=== PATIENT | male | born 1945 | race Caucasian/White ===

== ENCOUNTER 2020-03-03 13:31 | Inpatient (IN) ==
[2020-03-03] MEDS ORDERED: NS 1000 ML 1,000 ML IV ONE ×2 (13:52→18:14)
--- NOTE | 2020-03-03 14:22 | DR.WEAKNES ---
HPI Time Seen Time Seen by Provider: 03/03/20 13:55 Primary Care Physician Primary Care Physician: DIANA ROSE HPI Comment HPI Comment: PATIENT IS 75YR OLD MALE IN ER WITH GRNERALIZED WEAKNESS, ANOREXIA TIMES 3 DAYS. WORSE TODAY. SLURRED SPEECH, SLEEPY A LOT AND NOT EATING. THERAPIST CONCERN IF PATIENT HAVING STROKE. SHE IS NOT WANTING TO WALK. DENIES FEVER. DIARRHEA OR VOMITING. NO DYSURIA. Complaints Chief Complaint Doctors Comments: WEAKNESS ANOREXIA, SLURRED SPEECH THAT IS WORSE TODAY. Chief Complaint:: SLEEPING ALL DAY, NOT EATING, SLURRED SPEECH THAT HAS GOT WO RSE. HE CANT WALK. PROGRESSIVELY GETTING WORSE DESPITE HAVING THERAPY IN THE HOME. THERAPIST CONCERNED HE MAY HAVE HAD ANOTHER STROKE Reviewed Nurses Notes Reviewed: Yes Source History Provided: Patient and Family Member Mode of Arrival Mode of Arrival: Wheelchair Timing Onset of Chief Complaint: 02/29/20 Since onset, symptoms are:: Worsened Symptom Onset: Known Onset of Symptoms Start Date: 02/29/20 Duration Duration: Intermittent Duration: Days Context Onset: Spontaneous Symptoms: Weakness and Slurred Speech History of: None Stroke Symptoms: Dizziness Location Weakness Location: Generalized Associated Signs and Symptoms Associated Signs and Symptoms: Altered Mental Status PMH PMH Past Medical History: Yes Past Medical History: Coronary Artery Disease, CVA, Hypertension and [place] Past Medical History Comment: ANEURYSM, Past Surgical History: Yes Surgical History: Cholecystectomy Past Surgical History Comment: BACK AND NECK PAIN Family History History of Family Medical Conditions: Yes Family Medical History: Cancer Social History Type of Tobacco Use: Cigarettes Alcohol Use: None Do you use any recreational Drugs:: No Lives With: Family Lives Where: Home Travel Risk Coronavirus risk:travel/contact w/high risk person: No Has patient experienced Coronavirus symptoms: Yes Coronavirus symptoms experienced: Shortness of Breath Infectious screening In the last 2 months have you had wt loss of >10#?: NO Have you had fever, night sweats or hemotysis?: No Have you traveled outside the country in the last 6 months?: No Isolation: Droplet ROS Review of Systems Constitutional: See HPI, Weakness and Fatigue; negative Fever Eyes: No Symptoms Reported and See HPI ENTM: No Symptoms Reported and See HPI; negative Nose Discharge and Nose Congestion Respiratoy: See HPI, Moist Cough and Short of Breath; negative Wheezing Cardiovascular: No Symptoms Reported and See HPI; negative Chest Pain and Palpitations Gastrointestinal/Abdominal: No Symptoms Reported and See HPI; negative Abdominal Pain, Diarrhea and Vomiting Genitourinary: No Symptoms Reported and See HPI; negative Dysuria and Hematuria Neurological: See HPI, Weakness and Speech Problem (SLURRED SPEECH.); negative Headache Musculoskeletal: See HPI, Back Pain and Muscle Pain Integumentary: No Symptoms Reported and See HPI; negative Change in Color, Rash and Juandice Hematologic/Lymphatic: No Symptoms Reported and See HPI; negative Easy Bruising and Swollen Glands Endocrine: Decreased Appetite; negative Increased Thirst and Increased Urine Psychiatric: No Symptoms Reported and See HPI All Other Systems: Reviewed and Negative PE Vital Signs Vitals: Temperature 97.9 F Pulse Rate [Right Radial] 100 Pulse Rate 97 Respiratory Rate 20 Blood Pressure [Right Arm] 97/62 Blood Pressure 94/69 O2 Sat by Pulse Oximetry 100 General Limitations: No Limitations General Appearance: Alert and In No Apparent Distress Head Head Exam: Normal Inspection and Atraumatic Eyes Eye exam: Normal Appearance and PERRL; negative Scleral Icterus and Conjunctival Injection Eyelids: Normal Inspection: Bilateral Pupils: Regular, Round: Bilateral Sclera/Conjunctival: Normal Inspection: Bilateral ENT ENT Exam: Normal Exam, Normal Oropharynx, Normal External Ear Exam and TM's Normal Bilaterally Mouth Exam: Normal Inspection; negative Lip Swelling and Tongue Swelling Throat Exam: Tonsillar Erythema; negative Tonsillomegaly and Tonsillar Exudate Neck Neck Exam: Normal Inspection and Trachea Midline; negative Tenderness and Lymphadenopathy Chest Chest Inspection: Normal Inspection and Symmetric Chest Wall Rise; negative Tenderness Respiratory Respiratory Exam: Normal Lung Sounds Bilat; negative Accessory Muscle Use, Chest Wall Tenderness and Respiratory Distress Respiratory Exam: Bilateral: Rhonchi and Lower: Rhonchi Cardiovascular Cardiovascular Exam: Regular Rate, Normal Rhythm and Normal Heart Sounds; negative Systolic Murmur and Diastolic Murmur Abdominal Exam Abdominal Exam: Normal Inspection, Normal Bowel Sounds and Soft; negative Tenderness Extremities Extremities Exam: Normal Inspection and Normal Capillary Refill; negative Tenderness and Calf Tenderness Back Back Exam: Normal Inspection; negative (R) CVA Tenderness and (L) CVA Tenderness Neurologic Neurological Exam: Alert, Oriented X3 and CN II-XII Intact; negative Motor Sensory Deficit Patient Oriented To: Person, Place and Time Speech: Fluid Speech Cranial Nerve Exam: EOM Function (II, III, IV, ): Normal, Facial Sensation (V): Normal, Facial Palsy (VII): Normal, Gag reflex (XI): Normal and Tongue Deviation: Normal Cerebellar Function: Normal Gait Motor Strength - LUE: 5/5 Motor Strength - RUE: 5/5 Motor Strength - LLE: 5/5 Motor Strength - RLE: 5/5 Upper Motor Neuron Exam: Babinski Sign: Normal Psychiatric Psychiatric Exam: Normal Affect and Normal Mood Skin Skin Exam: Warm, Dry, Intact and Normal Color MDM Differential Diagnosis Differential Diagnosis: CVA, Electrolyte Disorder, Hypoglycemia, Mass Lesion and TIA COURSE Treatment Treatment: SEE ORDERS. Education/Counseling Education/Counseling: Patient Educated On: Diagnosis ROR Labs Reviewed Laboratory Results Reviewed?: Yes Result Diagrams: 03/10/20 05:51 03/10/20 05:51 Laboratory: 03/03/20 15:42 Blood Blood Culture - Final 03/03/20 14:15 Blood Blood Culture - Final WBC 12.5 X10^3/uL (3.6-10.0) H 03/03/20 14:15 RBC 3.75 X10^6/uL (4.7-6.0) L 03/03/20 14:15 Hgb 8.6 g/dL (13.5-18.0) L 03/03/20 14:15 Hct 28.1 % (42.0-54.0) L 03/03/20 14:15 MCV 74.9 fL (80.0-100.0) L 03/03/20 14:15 MCH 23.0 pg (27.0-34.0) L 03/03/20 14:15 MCHC 30.8 g/dL (33.0-35.0) L 03/03/20 14:15 RDW 18.6 % (11.6-16.5) H 03/03/20 14:15 Plt Count 322 X10^3/uL (150.0-450.0) 03/03/20 14:15 Plt Count Comment Adequate (ADEQUATE) 03/03/20 14:15 MPV 7.5 fL (7.4-11.0) 03/03/20 14:15 Neut % (Auto) 76.5 % (42.0-75.0) H 03/03/20 14:15 Lymph % (Auto) 10.4 % (21.0-51.0) L 03/03/20 14:15 [place] % (Auto) 12.2 % (0.0-13.0) 03/03/20 14:15 Eos % (Auto) 0.7 % (0.9-2.9) L 03/03/20 14:15 Baso % (Auto) 0.2 % (0.2-1.0) 03/03/20 14:15 Neut # (Auto) 9.5 x10^3/uL (2.2-4.8) H 03/03/20 14:15 Lymph # (Auto) 1.3 X10^3/uL (1.3-2.9) 03/03/20 14:15 [place] # (Auto) 1.5 x10^3/uL (0.3-0.8) H 03/03/20 14:15 Eos # (Auto) 0.1 x10^3/uL (0.0-0.2) 03/03/20 14:15 Baso # (Auto) 0.0 X10^3/uL (0.0-0.1) 03/03/20 14:15 Absolute Nucleated RBC 0.8 /100WBC 03/03/20 14:15 Plt Morphology Comment Normal (NORMAL) 03/03/20 14:15 RBC Morphology Abnormal (NORMAL) 03/03/20 14:15 Hypochromasia 1+ A 03/03/20 14:15 Anisocytosis Slight A 03/03/20 14:15 Microcytosis Slight A 03/03/20 14:15 Target Cells Present 03/03/20 14:15 Sample Site Rb 03/03/20 14:51 ABG pH 7.460 (7.35-7.45) H 03/03/20 14:51 ABG pCO2 34.0 mmHg (35.0-45.0) L 03/03/20 14:51 ABG pO2 49.0 mmHg (80.0-100.0) L* 03/03/20 14:51 ABG HCO3 24.2 mmol/L (22-26) 03/03/20 14:51 ABG O2 Saturation 87.0 % (90-100) L 03/03/20 14:51 ABG Base Excess 0.8 mmol/L (-2.0-2.0) 03/03/20 14:51 Jhonatan Test N/a 03/03/20 14:51 A-a Gradient 58.0 mmHg 03/03/20 14:51 FiO2 21.0 03/03/20 14:51 Blood Gas Comments Kelsi well eb cb 03/03/20 14:51 Sodium 127 mmol/L (136-145) L 03/03/20 14:15 Corrected Sodium TNP 03/03/20 14:15 Potassium 4.4 mmol/L (3.5-5.1) 03/03/20 14:15 Chloride 94 mmol/L (98-107) L 03/03/20 14:15 Carbon Dioxide 25.4 mmol/L (21-32) 03/03/20 14:15 BUN 23 mg/dL (7-18) H 03/03/20 14:15 Creatinine 0.94 mg/dL (0.70-1.30) 03/03/20 14:15 Est GFR (MDRD) Af Amer > 60 (>60) 03/03/20 14:15 Est GFR (MDRD) Non-Af > 60 (>60) 03/03/20 14:15 Glucose 101 mg/dL (65-99) H 03/03/20 14:15 Lactic Acid 2.4 mmol/L (0.4-2.0) H 03/03/20 14:15 Calcium 8.3 mg/dL (8.5-10.1) L 03/03/20 14:15 Corrected Calcium 9.2 mg/dL (8.5-10.1) 03/03/20 14:15 Total Bilirubin 1.00 mg/dL (0.2-1.0) 03/03/20 14:15 AST 350 Units/L (15-37) H 03/03/20 14:15 ALT 538 Units/L (12-78) H 03/03/20 14:15 Alkaline Phosphatase 203 Units/L (46-116) H 03/03/20 14:15 Creatine Kinase 218 Units/L (39-308) 03/03/20 14:15 CK-MB (CK-2) 9.4 ng/mL (0-4.0) H* 03/03/20 14:15 CK/CKMB % Calc 4.3 % (<4) 03/03/20 14:15 Troponin I 0.28 ng/mL (0-1.5) 03/03/20 14:15 Total Protein 7.5 g/dL (6.4-8.2) 03/03/20 14:15 Albumin 2.9 g/dL (3.4-5.0) L 03/03/20 14:15 Globulin 4.6 g/dL (2.5-4.5) H 03/03/20 14:15 Albumin/Globulin Ratio 0.6 Ratio (1.1-2.1) L 03/03/20 14:15 SARS CoV-2 RNA Rapid EARL Negative (NEGATIVE) 03/03/20 14:35 XRAY XRAY Interpreted by: Radiologist (REPORT NOTED AND DISCUSSED WITH PATIENT.) and Self EKG Rate: 94 [place]: Normal Rhythm: NSR Block: RBBB Hypertrophy: None ST: Nonsp Opioid Opioid Risk Tool Age (Raul box if 16-45): No History of Preadolescent Sexual Abuse: No Total: 0 Total Score Risk Category: Low Risk Copyright: Landers LR predicting aberrant behaviors Diagnosis Discharge Problem: Generalized weakness, Acute dehydration Pneumonia Qualifiers: Pneumonia type: due to unspecified organism Laterality: bilateral Lung l ocation: lower lobe of lung Qualified Code(s): J18.9 - Pneumonia, unspecified organism Hypotension Qualifiers: Hypotension type: unspecified hypotension type Qualified Code(s): I95.9 - Hypotension, unspecified Instructions Instructions: Upper Respiratory Infection, Adult, [id number] Weakness, [id number] Acute Respiratory Failure, Adult Community-Acquired Pneumonia, Adult, [id number]
--- NOTE | 2020-03-03 14:33 | RAD ---
PROCEDURE: Chest x-ray one-view.HISTORY: SOB .TECHNIQUE: AP portable view done at 2 p.m..COMPARISON: 01/09/2017.TECHNICAL QUALITY: Satisfactory .FINDINGS:Normal size heart for AP technique.Mediastinum and hilar regions show no masses.Normal central vascularity.Patchy consolidation throughout both lung matos consistent with pneumonia. No pleural fluid or pneumothorax.No acute bony abnormality.Surgical clips projected over the right axilla.IMPRESSION:Bilateral pneumonia.Electronically signed by: Abilio Jaime (Mar 03, 2020 14:31:46)
[2020-03-03 14:41] LABS: BASOPHILS % (AUTO) 0.2 % (0.2-1.0); EOSINOPHILS # (AUTO) 0.1 x10^3/uL (0.0-0.2); EOSINOPHILS % (AUTO) 0.7 % (0.9-2.9); HEMATOCRIT 28.1 % (42.0-54.0); HEMOGLOBIN 8.6 g/dL (13.5-18.0); LYMPHOCYTES # (AUTO) 1.3 X10^3/uL (1.3-2.9); LYMPHOCYTES % (AUTO) 10.4 % (21.0-51.0); MEAN CORPUSCULAR HGB CONC 30.8 g/dL (33.0-35.0); MEAN CORPUSCULAR VOLUME 74.9 fL (80.0-100.0); MEAN PLATELET VOLUME 7.5 fL (7.4-11.0); MONOCYTES # (AUTO) 1.5 x10^3/uL (0.3-0.8); MONOCYTES % (AUTO) 12.2 % (0.0-13.0); NEUTROPHILS # (AUTO) 9.5 x10^3/uL (2.2-4.8); NEUTROPHILS % (AUTO) 76.5 % (42.0-75.0); PLATELET COUNT 322 X10^3/uL (150.0-450.0); RED BLOOD COUNT 3.75 X10^6/uL (4.7-6.0); RED CELL DISTRIBUTION WIDTH 18.6 % (11.6-16.5); WHITE BLOOD COUNT 12.5 X10^3/uL (3.6-10.0)
[2020-03-03 14:56] LABS: ABG BASE EXCESS 0.8 mmol/L (-2.0-2.0); ABG HCO3 24.2 mmol/L (22-26)
[2020-03-03 15:01] LABS: LACTIC ACID 2.4 mmol/L (0.4-2.0)
--- NOTE | 2020-03-03 15:03 | CT ---
PROCEDURE: CT head without contrast.HISTORY: SLEEPING ALL DAY, NOT EATING, SLURRED SPEECH THAT HAS GOT WORSE. HE CANT WALK. PROGRESSIVELY GETTING WORSE DESPITE HAVING THERAPY IN THE HOME. THERAPIST CONCERNED HE MAY HAVE HAD ANOTHER STROKE .TECHNIQUE: Axial images were performed through the head without the administration of IV contrast with multiplanar reformations . Dose reduction techniques including Automated Exposure Control (AEC) and adjustment of mA and kV were utilized .COMPARISON: 03/20/2018.TECHNICAL QUALITY: Satisfactory .FINDINGS:Brain shows no mass, hemorrhage, or acute stroke.Moderate periventricular old micro skin mark changes. Moderate diffuse cerebral and cerebellar atrophy.Ventricles are normal size for patient's age.No acute skull or scalp abnormality.Visualized sinuses show air-fluid levels both maxillary sinuses and the left sphenoidal sinus. Scattered mild inflammatory mucosal changes maxillary, ethmoidal, and sphenoidal sinuses. Clear mastoids.IMPRESSION:1. No acute intracranial abnormality.2. Senescent changes.3. Moderate sinusitis.Electronically signed by: Abilio Jaime (Mar 03, 2020 15:01:14)
[2020-03-03 15:05] LABS: ANISOCYTOSIS SLIGHT; HYPOCHROMASIA 1+; MICROCYTOSIS SLIGHT; PLATELET MORPHOLOGY COMMENT NORMAL (NORMAL)
[2020-03-03 15:06] LABS: TARGET CELLS PRESENT
[2020-03-03 15:08] LABS: BLOOD UREA NITROGEN 23 mg/dL (7-18); CALCIUM 8.3 mg/dL (8.5-10.1); CARBON DIOXIDE 25.4 mmol/L (21-32); CHLORIDE 94 mmol/L (98-107); CREATININE 0.94 mg/dL (0.70-1.30); SODIUM 127 mmol/L (136-145); TROPONIN I 0.28 ng/mL (0-1.5); eGFR NON BLACK RACES > 60 (>60)
[2020-03-03 15:26] LABS: ALANINE AMINOTRANSFERASE 538 Units/L (12-78); ALBUMIN 2.9 g/dL (3.4-5.0); ALKALINE PHOSPHATASE 203 Units/L (46-116); ASPARTATE AMINO TRANSFERASE 350 Units/L (15-37); CKMB % 4.3 % (<4); COR CA(FOR HYPOALB) 9.2 mg/dL (8.5-10.1); CREATINE KINASE 218 Units/L (39-308); TOTAL PROTEIN 7.5 g/dL (6.4-8.2)
[2020-03-03 15:30] LABS: CREATINE KINASE MB 9.4 ng/mL (0-4.0)
[2020-03-03] MEDS: LEVAQUIN PREMIX IV 750 MG 750 MG/150 ML BAG IV ONE ×2 (17:46→18:13)
[2020-03-03] MEDS ORDERED: NS 1000 ML 1,000 ML ONE (18:07)
[2020-03-03] MEDS ORDERED: LEVAQUIN PREMIX IV 750 MG 750 MG/150 ML BAG IV ONE (18:08)
[2020-03-04] MEDS ORDERED: TUSSIONEX PENNKINETIC SUSP PO PRN (00:36)
[2020-03-04 02:38] LABS: CKMB % 4.1 % (<4); TROPONIN I 0.28 ng/mL (0-1.5)
[2020-03-04 02:43] LABS: CREATINE KINASE MB 7.1 ng/mL (0-4.0)
[2020-03-04 06:12] LABS: ABG BASE EXCESS 0.1 mmol/L (-2.0-2.0); ABG HCO3 23.6 mmol/L (22-26)
[2020-03-04 06:13] LABS: ABG ALLEN TEST POS
[2020-03-04 06:18] LABS: BASOPHILS % (AUTO) 0.3 % (0.2-1.0); EOSINOPHILS # (AUTO) 0.1 x10^3/uL (0.0-0.2); EOSINOPHILS % (AUTO) 0.9 % (0.9-2.9); HEMOGLOBIN 8.3 g/dL (13.5-18.0); LYMPHOCYTES % (AUTO) 9.5 % (21.0-51.0); MEAN CORPUSCULAR HEMOGLOBIN 23.3 pg (27.0-34.0); MEAN CORPUSCULAR HGB CONC 30.9 g/dL (33.0-35.0); MEAN CORPUSCULAR VOLUME 75.5 fL (80.0-100.0); MEAN PLATELET VOLUME 7.5 fL (7.4-11.0); MONOCYTES # (AUTO) 1.2 x10^3/uL (0.3-0.8); MONOCYTES % (AUTO) 11.8 % (0.0-13.0); NEUTROPHILS # (AUTO) 8.1 x10^3/uL (2.2-4.8); NEUTROPHILS % (AUTO) 77.5 % (42.0-75.0); PLATELET COUNT 316 X10^3/uL (150.0-450.0); RED BLOOD COUNT 3.58 X10^6/uL (4.7-6.0); RED CELL DISTRIBUTION WIDTH 18.3 % (11.6-16.5); WHITE BLOOD COUNT 10.4 X10^3/uL (3.6-10.0)
[2020-03-04 06:44] LABS: ALANINE AMINOTRANSFERASE 407 Units/L (12-78); ALBUMIN 2.5 g/dL (3.4-5.0); ALKALINE PHOSPHATASE 183 Units/L (46-116); ASPARTATE AMINO TRANSFERASE 235 Units/L (15-37); BLOOD UREA NITROGEN 15 mg/dL (7-18); CALCIUM 7.8 mg/dL (8.5-10.1); CARBON DIOXIDE 22.6 mmol/L (21-32); CHLORIDE 97 mmol/L (98-107); CHOLESTEROL 79 mg/dL (0-200); HDL CHOLESTEROL 26 mg/dL (40-60); MAGNESIUM 0.8 mg/dL (1.7-2.9); SODIUM 131 mmol/L (136-145); TOTAL PROTEIN 6.7 g/dL (6.4-8.2); TRIGLYCERIDES 71 mg/dL (0-150); eGFR NON BLACK RACES > 60 (>60)
[2020-03-04 06:55] VITALS: BMI 20.7
[2020-03-04 08:42] LABS: CKMB % 3.8 % (<4); TROPONIN I 0.25 ng/mL (0-1.5)
[2020-03-04 08:45] LABS: CREATINE KINASE MB 5.8 ng/mL (0-4.0)
[2020-03-04] MEDS: NS 1000 ML 1,000 ML IV SCH ×3 (09:42→16:56)
[2020-03-04] MEDS: ROBITUSSIN DM PO SCH ×4 (09:43→21:25)
[2020-03-04] MEDS: VSL#3 PO SCH (09:45)
[2020-03-04] MEDS ORDERED: DUONEB 0.5 MG/3 MG (3 mL) NEB ONE (12:28)
--- NOTE | 2020-03-04 13:43 | DR.H&P ---
H&P History & Physical for Day of: H&P Date: 03/04/20 Chief Complaint Chief Complaint: weakness, slurred speech, AMS Allergies Allergies Allergy/AdvReac Type Severity Reaction Status Date / Time No Known Drug Allergies Allergy Verified 03/03/20 13:33 History of Present Illness History of Present Illness: Patient is a 75y/o male with a PMH CAD, HTN, CVA recently with residual right sided hemiparesis, weakness and slurred speech presented with confusion, SOB, worsening weakness concerning for stroke. In the ED, CT-head was negative. CXR showed bilateral pneumonia. COVID test was negative. Patient is currently on 3L NC. Labs showed WBC 12.5, Hgb 8.3 Plt 316 I NR: 1.44 Na: 131 K: 4.3 Cr: 0.8 AST 235 ALT 407 ALP 183 Trop 0.28. Patient was started on pneumonia protocol including IV antibiotics, bronchodilators. Start Rocephin/Azithromycin, duonebs, respiratory consult for O2. Wean O2 as tolerated. Continue gentle hydration. Hold lasix for now. Resume other home medications. Follow AM labs and imaging. On exam, patient appears to have severe right sided weakness and slurred speech due to recent stroke. He is unable to do activities of daily living. Patient does not ambulate and requires 24 hr assistance. He appears to be debilitated. Will order PT/OT for further evaluation. Patient may require STR after discharge. Past Medical History Past Medical History: Coronary Artery Disease, CVA, Hypertension and [place] Past Surgical History Surgical History: CABG/Valve Surgery and Cholecystectomy Family History Family Medical History: Cancer Social History Does patient currently use any type of tobacco product: Yes Have you used tobacco products in the last 12 months: Yes Type of Tobacco Use: Cigarettes Does any household member use tobacco: No Alcohol Use: DAILY Drug Use: None Medications Home Medications: No Known Drug Allergies Allergy (Verified 03/03/20 13:33) CONTINUE taking the following medications atorvastatin 80 mg PO HS 03/04/20 [History] clopidogrel 75 mg PO DAILY 03/04/20 [History] furosemide 20 mg PO DAILY 03/04/20 [History] isosorbide mononitrate 20 mg PO BID 03/04/20 [History] levothyroxine 50 mcg PO DAILY 03/04/20 [History] magnesium oxide 400 mg PO DAILY 03/04/20 [History] metoprolol succinate 12.5 mg PO DAILY 03/04/20 [History] pravastatin 40 mg PO DAILY 03/04/20 [History] sertraline 50 mg PO DAILY 03/04/20 [History] Labs Result Diagrams: 03/04/20 05:18 03/04/20 05:18 Labs: Laboratory WBC 10.4 X10^3/uL (3.6-10.0) H 03/04/20 05:18 RBC 3.58 X10^6/uL (4.7-6.0) L 03/04/20 05:18 Hgb 8.3 g/dL (13.5-18.0) L 03/04/20 05:18 Hct 27.0 % (42.0-54.0) L 03/04/20 05:18 MCV 75.5 fL (80.0-100.0) L 03/04/20 05:18 MCH 23.3 pg (27.0-34.0) L 03/04/20 05:18 MCHC 30.9 g/dL (33.0-35.0) L 03/04/20 05:18 RDW 18.3 % (11.6-16.5) H 03/04/20 05:18 Plt Count 316 X10^3/uL (150.0-450.0) 03/04/20 05:18 Plt Count Comment Adequate (ADEQUATE) 03/03/20 14:15 MPV 7.5 fL (7.4-11.0) 03/04/20 05:18 Neut % (Auto) 77.5 % (42.0-75.0) H 03/04/20 05:18 Lymph % (Auto) 9.5 % (21.0-51.0) L 03/04/20 05:18 [place] % (Auto) 11.8 % (0.0-13.0) 03/04/20 05:18 Eos % (Auto) 0.9 % (0.9-2.9) 03/04/20 05:18 Baso % (Auto) 0.3 % (0.2-1.0) 03/04/20 05:18 Neut # (Auto) 8.1 x10^3/uL (2.2-4.8) H 03/04/20 05:18 Lymph # (Auto) 1.0 X10^3/uL (1.3-2.9) L 03/04/20 05:18 [place] # (Auto) 1.2 x10^3/uL (0.3-0.8) H 03/04/20 05:18 Eos # (Auto) 0.1 x10^3/uL (0.0-0.2) 03/04/20 05:18 Baso # (Auto) 0.0 X10^3/uL (0.0-0.1) 03/04/20 05:18 Absolute Nucleated RBC 0.6 /100WBC 03/04/20 05:18 Plt Morphology Comment Normal (NORMAL) 03/03/20 14:15 RBC Morphology Abnormal (NORMAL) 03/03/20 14:15 Hypochromasia 1+ A 03/03/20 14:15 Anisocytosis Slight A 03/03/20 14:15 Microcytosis Slight A 03/03/20 14:15 Target Cells Present 03/03/20 14:15 PT 17.1 SECONDS (11.8-14.3) 03/04/20 05:18 INR Target Range - 03/04/20 05:18 INR 1.44 (0.8-1.3) H 03/04/20 05:18 APTT 38.5 SECONDS (22.9-36.5) H 03/04/20 05:18 PTT Comment - 03/04/20 05:18 Sample Site Lrad 03/04/20 06:10 ABG pH 7.450 (7.35-7.45) 03/04/20 06:10 ABG pCO2 34.0 mmHg (35.0-45.0) L 03/04/20 06:10 ABG pO2 55.0 mmHg (80.0-100.0) L 03/04/20 06:10 ABG HCO3 23.6 mmol/L (22-26) 03/04/20 06:10 ABG O2 Saturation 90.0 % (90-100) 03/04/20 06:10 ABG Base Excess 0.1 mmol/L (-2.0-2.0) 03/04/20 06:10 Jhonatan Test Pos 03/04/20 06:10 A-a Gradient 131.0 mmHg 03/04/20 06:10 FiO2 32.0 03/04/20 06:10 Blood Gas Comments Kelsi abg well-mtf 03/04/20 06:10 Sodium 131 mmol/L (136-145) L 03/04/20 05:18 Corrected Sodium TNP 03/04/20 05:18 Potassium 4.3 mmol/L (3.5-5.1) 03/04/20 05:18 Chloride 97 mmol/L (98-107) L 03/04/20 05:18 Carbon Dioxide 22.6 mmol/L (21-32) 03/04/20 05:18 BUN 15 mg/dL (7-18) 03/04/20 05:18 Creatinine 0.80 mg/dL (0.70-1.30) 03/04/20 05:18 Est GFR (MDRD) Af Amer > 60 (>60) 03/04/20 05:18 Est GFR (MDRD) Non-Af > 60 (>60) 03/04/20 05:18 Glucose 70 mg/dL (65-99) 03/04/20 05:18 Lactic Acid 2.4 mmol/L (0.4-2.0) H 03/03/20 14:15 Calcium 7.8 mg/dL (8.5-10.1) L 03/04/20 05:18 Corrected Calcium 9.0 mg/dL (8.5-10.1) 03/04/20 05:18 Magnesium 0.8 mg/dL (1.7-2.9) L 03/04/20 05:18 Ferritin 64 ng/mL (26-388) 03/04/20 01:43 Total Bilirubin 1.00 mg/dL (0.2-1.0) 03/04/20 05:18 AST 235 Units/L (15-37) H 03/04/20 05:18 ALT 407 Units/L (12-78) H 03/04/20 05:18 Alkaline Phosphatase 183 Units/L (46-116) H 03/04/20 05:18 Creatine Kinase 154 Units/L (39-308) 03/04/20 07:28 CK-MB (CK-2) 5.8 ng/mL (0-4.0) H* 03/04/20 07:28 CK/CKMB % Calc 3.8 % (<4) 03/04/20 07:28 Troponin I 0.25 ng/mL (0-1.5) 03/04/20 07:28 C-Reactive Protein 76.30 mg/L (0-3.0) H 03/04/20 01:43 Total Protein 6.7 g/dL (6.4-8.2) 03/04/20 05:18 Albumin 2.5 g/dL (3.4-5.0) L 03/04/20 05:18 Globulin 4.2 g/dL (2.5-4.5) 03/04/20 05:18 Albumin/Globulin Ratio 0.6 Ratio (1.1-2.1) L 03/04/20 05:18 Triglycerides 71 mg/dL (0-150) 03/04/20 05:18 Cholesterol 79 mg/dL (0-200) 03/04/20 05:18 LDL Cholesterol, Calc 39 mg/dL (0-100) 03/04/20 05:18 HDL Cholesterol 26 mg/dL (40-60) L 03/04/20 05:18 Cholesterol/HDL Ratio 3.0 (0.0-5.0) 03/04/20 05:18 SARS CoV-2 RNA Rapid EARL Negative (NEGATIVE) 03/03/20 14:35 Review of Systems Constitutional: Weakness Eyes: No Symptoms Reported ENT: No Symptoms Reported Respiratory: Shortness of Breath Cardiovascular: No Symptoms Reported Gastrointestinal: No Symptoms Reported Genitourinary: No Symptoms Reported Musculoskeletal: No Symptoms Reported Skin: No Symptoms Reported Neurological: Weakness, Incoordination, Change in Speech and Confusion Physical Exam Vital Signs: Temperature 98.1 F Pulse Rate [Right Radial] 100 Pulse Rate 100 Respiratory Rate 20 Blood Pressure [Right Arm] 92/60 Blood Pressure 94/69 O2 Sat by Pulse Oximetry 91 Oriented: Normal Eyes: Normal Ear: Normal Nose: Normal Throat: Normal Respiratory: Diminished Throughout and Rhonchi Throughout Cardiovascular: Normal Auscultation: Bowel Sounds: Normal Palpation: Normal Tenderness: Normal Skin: Decreased [place] Musculoskeletal: Right, Arm, Forearm, Leg, Motor Deficit and Instability Psychiatric: Other Mood Description: Calm and Appropriate Affect: Normal Speech Pattern: Unclear and Slurred Assessment/Plan (1) Pneumonia: Status: Acute (2) Acute respiratory failure with hypoxia: Status: Acute (3) Right hemiparesis: Status: Acute (4) CVA (cerebral vascular accident): Status: Acute (5) Generalized weakness: Status: Acute (6) CAD (coronary artery disease): Status: Acute Review H&P Reviewed: Yes Patient was examined?: Yes
[2020-03-04] MEDS: DUONEB 0.5 MG/3 MG (3 mL) NEB SCH ×2 (14:20→21:11)
[2020-03-04 15:49] LABS: TROPONIN I 0.2 ng/mL (0-1.5)
[2020-03-04 15:52] LABS: CREATINE KINASE MB 4.2 ng/mL (0-4.0)
[2020-03-04] MEDS ORDERED: ROCEPHIN VIAL 1 GRAM 1 G in NS 100 ML IV + SPIKE MINIBAG* 100 ML IV SCH (20:15)
[2020-03-04] MEDS ORDERED: LASIX PO SCH (21:00)
[2020-03-04] MEDS: TOPROL XL PO SCH (21:25)
[2020-03-04] MEDS: SYNTHROID 50 mcg TAB PO SCH (21:25)
[2020-03-04] MEDS: LIPITOR TAB 40 MG PO SCH (21:25)
[2020-03-04] MEDS: MONOKET or IMDUR PO SCH (21:25)
[2020-03-04] MEDS: PLAVIX PO SCH (21:25)
[2020-03-04] MEDS: ZOLOFT PO SCH (21:25)
[2020-03-04] MEDS ORDERED: COLACE CAP 100 MG PO PRN (23:26)
[2020-03-04] MEDS ORDERED: MILK OF MAGNESIA PO PRN (23:26)
[2020-03-05] MEDS: DUONEB 0.5 MG/3 MG (3 mL) NEB SCH ×3 (05:30→20:45)
--- NOTE | 2020-03-05 06:14 | RAD ---
HISTORYPNEUMONIASTUDYCHEST, 1 [id number]/2020FINDINGSThe trachea is midline. The cardiac silhouette is mildly enlarged.. Patchy infiltrates noted bilaterally. No pneumothorax.. The bony thorax is unremarkable.IMPRESSIONMild cardiomegalyPatchy bilateral infiltrates, unchanged.Electronically signed by: Omid Jang (Mar 05, 2020 06:12:29)
[2020-03-05 06:52] LABS: BASOPHILS % (AUTO) 0.1 % (0.2-1.0); EOSINOPHILS % (AUTO) 0.5 % (0.9-2.9); HEMOGLOBIN 8.2 g/dL (13.5-18.0); LYMPHOCYTES # (AUTO) 1.2 X10^3/uL (1.3-2.9); LYMPHOCYTES % (AUTO) 11.6 % (21.0-51.0); MEAN CORPUSCULAR HGB CONC 30.4 g/dL (33.0-35.0); MEAN CORPUSCULAR VOLUME 75.6 fL (80.0-100.0); MEAN PLATELET VOLUME 7.4 fL (7.4-11.0); MONOCYTES # (AUTO) 1.2 x10^3/uL (0.3-0.8); MONOCYTES % (AUTO) 11.3 % (0.0-13.0); NEUTROPHILS # (AUTO) 7.8 x10^3/uL (2.2-4.8); NEUTROPHILS % (AUTO) 76.5 % (42.0-75.0); PLATELET COUNT 319 X10^3/uL (150.0-450.0); RED BLOOD COUNT 3.57 X10^6/uL (4.7-6.0); RED CELL DISTRIBUTION WIDTH 18.8 % (11.6-16.5); WHITE BLOOD COUNT 10.3 X10^3/uL (3.6-10.0)
[2020-03-05 07:06] LABS: BLOOD UREA NITROGEN 14 mg/dL (7-18); CARBON DIOXIDE 22.9 mmol/L (21-32); CHLORIDE 101 mmol/L (98-107); COR NA(FOR HYPERGLY) 137 mmol/L (136-145); CREATININE 0.88 mg/dL (0.70-1.30); SODIUM 136 mmol/L (136-145); eGFR NON BLACK RACES > 60 (>60)
[2020-03-05] MEDS ORDERED: PROCRIT or EPOGEN VIAL 10,000 UNITS SC ONE (07:12)
[2020-03-05] MEDS ORDERED: NS 100 ML IV 100 ML with VENOFER 200 MG IV NR ×2 (08:00)
[2020-03-05] MEDS: NS 1000 ML 1,000 ML IV SCH ×3 (08:46→17:49)
[2020-03-05] MEDS: MAGNESIUM SULFATE 1 GRAM/100 mL PREMIX 4 G/400 ML BAG IV SCH ×4 (09:18→14:27)
--- NOTE | 2020-03-05 10:05 | US ---
HISTORYElevated LFTsSTUDYABDOMEN USCOMPARISONNoneTECHNIQUEMultiple bhat scale and color flow Doppler images of the abdomen were obtained.FINDINGSThe liver is normal in size and increased in echotexture. No focal identifiable hepatic mass or intrahepatic biliary ductal dilatation.The gallbladder is surgically absent. The common bile duct is unremarkable measuring 0.3 cm.Limited visualized portions of the pancreas are unremarkable.The right kidney is normal in size measuring up to 9.1 cm. The left kidney is normal in size measuring up to 11.4 cm. No stones or hydronephrosis.The spleen is normal in appearance and normal in size measuring up to 10.8 cm.Visualized portions of the inferior vena cava are unremarkable. No free intra-abdominal fluid. Incidentally noted infrarenal abdominal aortic aneurysm measuring up to approximately 3.2 x 2.9 x 2.6 cm. 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 Incidentally noted right pleural effusion.IMPRESSIONIncreased hepatic echotexture which may be seen with hepatocellular disease and/or steatosis.Infrarenal abdominal aortic aneurysm measuring up to 3.2 cm in diameter. 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 could better evaluate.Incidentally noted right pleural effusion.Electronically signed by: AARON OLIVAS (Mar 05, 2020 10:04:12)
[2020-03-05] MEDS ORDERED: NS 250 ML IV 250 ML IV ONE (10:16)
[2020-03-05] MEDS: MAG-OX TAB PO SCH ×2 (10:19→12:31)
[2020-03-05] MEDS: MONOKET or IMDUR PO SCH ×2 (10:19→12:31)
[2020-03-05] MEDS: PLAVIX PO SCH ×2 (10:19→12:33)
[2020-03-05] MEDS: TOPROL XL PO SCH ×2 (10:20→12:34)
[2020-03-05] MEDS: ROBITUSSIN DM PO SCH ×3 (10:20→17:50)
[2020-03-05] MEDS: ZOLOFT PO SCH ×2 (10:21→12:34)
[2020-03-05] MEDS: SYNTHROID 50 mcg TAB PO SCH ×2 (10:21→12:34)
[2020-03-05] MEDS: VSL#3 PO SCH ×2 (10:21→12:34)
[2020-03-05] MEDS: SPIKE MINIBAG IV SCH (10:37)
[2020-03-05] MEDS: ROCEPHIN IV SCH (10:37)
[2020-03-05] MEDS: NS IV SCH (10:37)
[2020-03-05] MEDS: ZITHROMAX INJ 500 MG VIAL 250 MG in NS 250 ML IV 250 ML IV SCH (11:03)
[2020-03-05] MEDS ORDERED: MAGNESIUM SULFATE 1 GRAM/100 mL PREMIX 4 G/400 ML BAG IV SCH (11:18)
[2020-03-05] MEDS ORDERED: BUTT CREAM (COMPOUND) TOP PRN (15:46)
[2020-03-05] MEDS: DIFLUCAN PO SCH (17:50)
[2020-03-06] MEDS: DUONEB 0.5 MG/3 MG (3 mL) NEB SCH ×4 (05:45→21:00)
[2020-03-06 06:53] LABS: BASOPHILS % (AUTO) 0.4 % (0.2-1.0); EOSINOPHILS # (AUTO) 0.1 x10^3/uL (0.0-0.2); EOSINOPHILS % (AUTO) 0.9 % (0.9-2.9); HEMATOCRIT 27.3 % (42.0-54.0); HEMOGLOBIN 8.4 g/dL (13.5-18.0); LYMPHOCYTES # (AUTO) 1.3 X10^3/uL (1.3-2.9); LYMPHOCYTES % (AUTO) 12.7 % (21.0-51.0); MEAN CORPUSCULAR HEMOGLOBIN 23.5 pg (27.0-34.0); MEAN CORPUSCULAR HGB CONC 30.9 g/dL (33.0-35.0); MEAN CORPUSCULAR VOLUME 76.2 fL (80.0-100.0); MEAN PLATELET VOLUME 7.6 fL (7.4-11.0); MONOCYTES # (AUTO) 1.2 x10^3/uL (0.3-0.8); MONOCYTES % (AUTO) 12.2 % (0.0-13.0); NEUTROPHILS # (AUTO) 7.5 x10^3/uL (2.2-4.8); NEUTROPHILS % (AUTO) 73.8 % (42.0-75.0); PLATELET COUNT 284 X10^3/uL (150.0-450.0); RED BLOOD COUNT 3.58 X10^6/uL (4.7-6.0); RED CELL DISTRIBUTION WIDTH 19.1 % (11.6-16.5); WHITE BLOOD COUNT 10.2 X10^3/uL (3.6-10.0)
[2020-03-06 07:07] LABS: ALANINE AMINOTRANSFERASE 286 Units/L (12-78); ALBUMIN 2.6 g/dL (3.4-5.0); ALKALINE PHOSPHATASE 192 Units/L (46-116); ASPARTATE AMINO TRANSFERASE 112 Units/L (15-37); BLOOD UREA NITROGEN 17 mg/dL (7-18); CALCIUM 8.3 mg/dL (8.5-10.1); CARBON DIOXIDE 19.1 mmol/L (21-32); CHLORIDE 103 mmol/L (98-107); COR CA(FOR HYPOALB) 9.4 mg/dL (8.5-10.1); COR NA(FOR HYPERGLY) 136 mmol/L (136-145); CREATININE 1.02 mg/dL (0.70-1.30); SODIUM 135 mmol/L (136-145); TOTAL PROTEIN 7.2 g/dL (6.4-8.2); eGFR NON BLACK RACES > 60 (>60)
[2020-03-06] MEDS: NS 1000 ML 1,000 ML IV SCH ×4 (09:49→21:30)
[2020-03-06] MEDS: MONOKET or IMDUR PO SCH ×2 (09:50→21:30)
[2020-03-06] MEDS: ROBITUSSIN DM PO SCH ×4 (09:51→21:30)
[2020-03-06] MEDS: DIFLUCAN PO SCH (09:52)
[2020-03-06] MEDS: MAG-OX TAB PO SCH (09:52)
[2020-03-06] MEDS: PLAVIX PO SCH (09:53)
[2020-03-06] MEDS: SYNTHROID 50 mcg TAB PO SCH (09:53)
[2020-03-06] MEDS: TOPROL XL PO SCH (09:54)
[2020-03-06] MEDS: ZOLOFT PO SCH (09:54)
[2020-03-06] MEDS: VSL#3 PO SCH (09:55)
[2020-03-06] MEDS: ZITHROMAX INJ 500 MG VIAL 250 MG in NS 250 ML IV 250 ML IV SCH (09:55)
[2020-03-06] MEDS: ROCEPHIN IV SCH (11:00)
[2020-03-06] MEDS: SPIKE MINIBAG IV SCH (11:00)
[2020-03-06] MEDS: NS IV SCH (11:00)
[2020-03-06] MEDS: LIPITOR TAB 40 MG PO SCH (21:30)
[2020-03-07 05:06] LABS: BILIRUBIN,URINE 1+ (NEGATIVE); BLOOD/HEMOGLOBIN,URINE NEGATIVE (NEGATIVE); GLUCOSE, URINE NEGATIVE (NEGATIVE); KETONES,URINE NEGATIVE (NEGATIVE); LEUKOCYTE ESTERASE ,URINE 1+ (NEGATIVE); NITRITES,URINE NEGATIVE (NEGATIVE); PROTEIN,URINE 2+ (NEGATIVE); UROBILINOGEN,URINE 1+ (NORMAL)
[2020-03-07 05:54] LABS: APPEARANCE,URINE CLEAR (CLEAR); BACTERIA,URINE NEGATIVE /HPF (NEGATIVE); COLOR,URINE AMBER (YELLOW); HYALINE CASTS, URINE MODERATE /LPF (NEGATIVE); RBC,URINE NONE SEEN /HPF (0-3); SQUAMOUS EPITHELIAL CELL,UR RARE /HPF (NEGATIVE)
[2020-03-07 05:55] LABS: MUCUS,URINE FEW /HPF (NEGATIVE)
[2020-03-07] MEDS: DUONEB 0.5 MG/3 MG (3 mL) NEB SCH ×4 (06:13→21:07)
[2020-03-07 06:37] LABS: BASOPHILS % (AUTO) 0.2 % (0.2-1.0); EOSINOPHILS # (AUTO) 0.1 x10^3/uL (0.0-0.2); EOSINOPHILS % (AUTO) 0.7 % (0.9-2.9); HEMATOCRIT 27.1 % (42.0-54.0); HEMOGLOBIN 8.3 g/dL (13.5-18.0); LYMPHOCYTES # (AUTO) 1.5 X10^3/uL (1.3-2.9); LYMPHOCYTES % (AUTO) 11.7 % (21.0-51.0); MEAN CORPUSCULAR HEMOGLOBIN 23.2 pg (27.0-34.0); MEAN CORPUSCULAR HGB CONC 30.5 g/dL (33.0-35.0); MEAN CORPUSCULAR VOLUME 76.1 fL (80.0-100.0); MEAN PLATELET VOLUME 7.7 fL (7.4-11.0); MONOCYTES # (AUTO) 1.3 x10^3/uL (0.3-0.8); MONOCYTES % (AUTO) 10.4 % (0.0-13.0); PLATELET COUNT 271 X10^3/uL (150.0-450.0); RED BLOOD COUNT 3.56 X10^6/uL (4.7-6.0); RED CELL DISTRIBUTION WIDTH 18.8 % (11.6-16.5); WHITE BLOOD COUNT 12.9 X10^3/uL (3.6-10.0)
[2020-03-07 06:41] LABS: ALANINE AMINOTRANSFERASE 378 Units/L (12-78); ALBUMIN 2.6 g/dL (3.4-5.0); ALKALINE PHOSPHATASE 219 Units/L (46-116); ASPARTATE AMINO TRANSFERASE 394 Units/L (15-37); BLOOD UREA NITROGEN 26 mg/dL (7-18); CALCIUM 8.4 mg/dL (8.5-10.1); CARBON DIOXIDE 20.2 mmol/L (21-32); CHLORIDE 103 mmol/L (98-107); COR CA(FOR HYPOALB) 9.5 mg/dL (8.5-10.1); CREATININE 1.34 mg/dL (0.70-1.30); SODIUM 136 mmol/L (136-145); TOTAL PROTEIN 7.3 g/dL (6.4-8.2); eGFR NON BLACK RACES 55 (>60)
[2020-03-07] MEDS: NS 1000 ML 1,000 ML IV SCH ×3 (07:05→21:42)
[2020-03-07] MEDS: MONOKET or IMDUR PO SCH ×3 (09:37→21:44)
[2020-03-07] MEDS: ROBITUSSIN DM PO SCH ×5 (09:38→21:44)
[2020-03-07] MEDS: DIFLUCAN PO SCH (09:38)
[2020-03-07] MEDS: LOVENOX INJ 40 MG SYR SC SCH (09:39)
[2020-03-07] MEDS: MAG-OX TAB PO SCH (09:40)
[2020-03-07] MEDS: PLAVIX PO SCH (09:40)
[2020-03-07] MEDS: VSL#3 PO SCH (09:41)
[2020-03-07] MEDS: TOPROL XL PO SCH (09:41)
[2020-03-07] MEDS: SYNTHROID 50 mcg TAB PO SCH (09:41)
[2020-03-07] MEDS: ZITHROMAX INJ 500 MG VIAL 250 MG in NS 250 ML IV 250 ML IV SCH (09:42)
[2020-03-07] MEDS: ZOLOFT PO SCH (09:43)
[2020-03-07] MEDS: XANAX PO SCH ×3 (12:00→21:45)
[2020-03-07] MEDS: ZOSYN VIAL 3.375 GRAMS 3.375 G in NS 100 ML IV + SPIKE MINIBAG* 100 ML IV SCH ×3 (12:00→21:43)
[2020-03-07] MEDS: LEXAPRO PO SCH (18:14)
[2020-03-07] MEDS: LIPITOR TAB 40 MG PO SCH ×2 (21:30→21:44)
[2020-03-08] MEDS: DUONEB 0.5 MG/3 MG (3 mL) NEB SCH ×3 (05:22→21:10)
[2020-03-08 06:43] LABS: BASOPHILS % (AUTO) 0.1 % (0.2-1.0); EOSINOPHILS # (AUTO) 0.1 x10^3/uL (0.0-0.2); EOSINOPHILS % (AUTO) 0.7 % (0.9-2.9); HEMATOCRIT 28.3 % (42.0-54.0); HEMOGLOBIN 8.3 g/dL (13.5-18.0); LYMPHOCYTES # (AUTO) 1.2 X10^3/uL (1.3-2.9); LYMPHOCYTES % (AUTO) 7.8 % (21.0-51.0); MEAN CORPUSCULAR HEMOGLOBIN 22.7 pg (27.0-34.0); MEAN CORPUSCULAR HGB CONC 29.4 g/dL (33.0-35.0); MEAN CORPUSCULAR VOLUME 77.4 fL (80.0-100.0); MEAN PLATELET VOLUME 7.8 fL (7.4-11.0); MONOCYTES # (AUTO) 1.5 x10^3/uL (0.3-0.8); MONOCYTES % (AUTO) 10.3 % (0.0-13.0); NEUTROPHILS # (AUTO) 11.9 x10^3/uL (2.2-4.8); NEUTROPHILS % (AUTO) 81.1 % (42.0-75.0); PLATELET COUNT 283 X10^3/uL (150.0-450.0); RED BLOOD COUNT 3.65 X10^6/uL (4.7-6.0); RED CELL DISTRIBUTION WIDTH 19.1 % (11.6-16.5); WHITE BLOOD COUNT 14.7 X10^3/uL (3.6-10.0)
[2020-03-08] MEDS: ZOSYN VIAL 3.375 GRAMS 3.375 G in NS 100 ML IV + SPIKE MINIBAG* 100 ML IV SCH (07:00)
[2020-03-08 07:02] LABS: ALANINE AMINOTRANSFERASE 399 Units/L (12-78); ALBUMIN 2.6 g/dL (3.4-5.0); ALKALINE PHOSPHATASE 273 Units/L (46-116); ASPARTATE AMINO TRANSFERASE 425 Units/L (15-37); BLOOD UREA NITROGEN 32 mg/dL (7-18); CALCIUM 8.6 mg/dL (8.5-10.1); CARBON DIOXIDE 20.8 mmol/L (21-32); CHLORIDE 105 mmol/L (98-107); COR CA(FOR HYPOALB) 9.7 mg/dL (8.5-10.1); CREATININE 1.36 mg/dL (0.70-1.30); SODIUM 138 mmol/L (136-145); TOTAL PROTEIN 7.2 g/dL (6.4-8.2); eGFR NON BLACK RACES 54 (>60)
[2020-03-08] MEDS ORDERED: LEXAPRO ONE (07:50)
[2020-03-08] MEDS: XANAX PO SCH ×4 (08:52→21:43)
[2020-03-08] MEDS: LEXAPRO PO SCH (08:55)
[2020-03-08] MEDS: LOVENOX INJ 40 MG SYR SC SCH ×3 (08:58→21:41)
[2020-03-08] MEDS: DIFLUCAN PO SCH (08:58)
[2020-03-08] MEDS: MAG-OX TAB PO SCH (08:59)
[2020-03-08] MEDS: MONOKET or IMDUR PO SCH ×2 (08:59→21:42)
[2020-03-08] MEDS: PLAVIX PO SCH (08:59)
[2020-03-08] MEDS ORDERED: VIBRAMYCIN 100 MG in D5W 250 ML IV 250 ML IV SCH (09:00)
[2020-03-08] MEDS: VSL#3 PO SCH (09:00)
[2020-03-08] MEDS: COREG TAB 6.25 MG PO SCH ×3 (09:00→21:41)
[2020-03-08] MEDS: ROBITUSSIN DM PO SCH ×4 (09:00→21:42)
[2020-03-08] MEDS: SYNTHROID 50 mcg TAB PO SCH (09:00)
--- NOTE | 2020-03-08 09:26 | RAD ---
HISTORYPNEUMONIASTUDYCHEST, 1 [id number].TECHNIQUEAP view of the chestFINDINGSCardiac silhouette is stably enlarged. Mediastinal contours normal for an AP view. Bilat diffuse bilateral airspace and interstitial opacities are re-demonstrated with some areas that appear less consolidated than prior such as in the left upper and right lower lobes. No pleural effusion or pneumothorax.IMPRESSIONMildly improved appearance of bilateral pneumonia.Electronically signed by: Omar Taylor (Mar 08, 2020 09:25:07)
[2020-03-08] MEDS: NS 1000 ML 1,000 ML IV SCH (11:07)
[2020-03-08] MEDS: LEVOPHED INJ 8 MG in D5W 250 ML IV 242 ML IV PRN (12:15)
[2020-03-08] MEDS ORDERED: LOVENOX INJ 40 MG SYR SC SCH (13:00)
--- NOTE | 2020-03-08 13:47 | DR.UPDATE ---
H&P Update History and Physical Update: History and Physical reviewed and patient examined. Changes noted: NO Yes with the following:will place central line for iv access/req vasopressive therapy H&P Reviewed: Yes Patient was examined?: Yes Procedures (ALL) - Central Line Placement PCM.CLCO: written consent Time out performed: Yes Patient placed pm monitor/pulse ox: Yes MD prep: mask, gown, gloves, other Centrial line prep: chlorhexidine scrub, sterile drapes applied Local anesthsia used: lidocane 1% Ultrasound used for placement: Yes (right ij id'd via u/s, and cannulation visualized) Central line lumen ininserted: triple Post procedure: sutured in place, good blood return, all ports aspirated, flushed,capped, sterile dressing applied Post procedure xray: tip oc catheter in good position, no pneumothorax seen Patient tolerated procedure: Yes Complications: none
--- NOTE | 2020-03-08 15:05 | RAD ---
EXAM: CHEST X-RAYHISTORY: Central line placement.TECHNIQUE: AP chest x-ray dated 03/08/2020 at 1:44 PM.COMPARISON: CXR dated 03/08/2020 at 7:13 AM.FINDINGS:There is a new right internal jugular central venous catheter with distal tip in the proximal cavoatrial junction (adequate position). Recommend careful clinical correlation to ensure venous blood return.There is evidence for cardiomegaly. The pulmonary vascularity and interstitial markings are diffusely prominent, consistent with severe CHF or volume overload in the appropriate clinical setting; differential diagnosis includes (but is not limited to) mild bronchitis and interstitial pneumonia in the appropriate clinical setting.There is no gross focal lung consolidation, pleural effusion, or pneumothorax seen. The visualized bony structures are within normal limits.IMPRESSION:1. New right internal jugular central venous catheter with distal tip in the proximal cavoatrial junction (adequate position). Recommend careful clinical correlation to ensure venous blood return.2. Findings consistent with severe CHF or volume overload in the appropriate clinical setting; DDX includes (but is not limited to) mild bronchitis and interstitial pneumonia in the appropriate clinical setting. Recommend clinical correlation and appropriate follow evaluation to ensure interval clearance as clinically warranted.Electronically signed by: Yuly Jaramillo (Mar 08, 2020 15:03:06)
[2020-03-08] MEDS: CLEOCIN 600 MG IV PREMIX 600 MG/50 ML BAG IV SCH ×2 (15:44→21:42)
[2020-03-08] MEDS ORDERED: LASIX IVP ONE (15:51)
--- NOTE | 2020-03-08 16:10 | VAS ---
HISTORYSWELLING RIGHT LEGSTUDYLOWER EXT VENOUS, UNILATERALCOMPARISONNoneTECHNIQUEMultiple bhat scale and color flow Doppler images of the deep venous system were obtained of the right lower extremity.FINDINGSThe deep venous system of the right lower extremity was evaluated from the level of the common femoral vein through the popliteal vein. Normal color flow and augmentation can be observed. In addition, normal compression is seen throughout the deep venous system.IMPRESSIONNegative for DVT.Electronically signed by: SLOANE MONAHAN (Mar 08 16:09:02)
[2020-03-08] MEDS: LIPITOR TAB 40 MG PO SCH (21:43)
[2020-03-09] MEDS: NS 1000 ML 1,000 ML IV SCH ×3 (01:07→13:24)
[2020-03-09] MEDS: LEVOPHED INJ 8 MG in D5W 250 ML IV 242 ML IV PRN ×2 (03:25→15:27)
[2020-03-09] MEDS: CLEOCIN 600 MG IV PREMIX 600 MG/50 ML BAG IV SCH ×3 (05:00→21:35)
[2020-03-09] MEDS: XANAX PO SCH ×2 (05:00→13:44)
[2020-03-09] MEDS: DUONEB 0.5 MG/3 MG (3 mL) NEB SCH ×4 (05:27→21:00)
[2020-03-09 07:23] LABS: ALANINE AMINOTRANSFERASE 329 Units/L (12-78); ALBUMIN 2.3 g/dL (3.4-5.0); ALKALINE PHOSPHATASE 285 Units/L (46-116); ASPARTATE AMINO TRANSFERASE 325 Units/L (15-37); BLOOD UREA NITROGEN 30 mg/dL (7-18); CALCIUM 8.4 mg/dL (8.5-10.1); CARBON DIOXIDE 21.5 mmol/L (21-32); CHLORIDE 108 mmol/L (98-107); COR CA(FOR HYPOALB) 9.8 mg/dL (8.5-10.1); CREATININE 1.16 mg/dL (0.70-1.30); MAGNESIUM 1.9 mg/dL (1.7-2.9); SODIUM 141 mmol/L (136-145); TOTAL PROTEIN 6.7 g/dL (6.4-8.2); eGFR NON BLACK RACES > 60 (>60)
[2020-03-09 07:26] LABS: BASOPHILS % (AUTO) 0.3 % (0.2-1.0); EOSINOPHILS # (AUTO) 0.2 x10^3/uL (0.0-0.2); EOSINOPHILS % (AUTO) 1.8 % (0.9-2.9); HEMATOCRIT 26.8 % (42.0-54.0); LYMPHOCYTES % (AUTO) 7.4 % (21.0-51.0); MEAN CORPUSCULAR HEMOGLOBIN 23.1 pg (27.0-34.0); MEAN CORPUSCULAR HGB CONC 29.9 g/dL (33.0-35.0); MEAN CORPUSCULAR VOLUME 77.1 fL (80.0-100.0); MEAN PLATELET VOLUME 7.9 fL (7.4-11.0); MONOCYTES # (AUTO) 1.4 x10^3/uL (0.3-0.8); MONOCYTES % (AUTO) 11.1 % (0.0-13.0); NEUTROPHILS # (AUTO) 10.2 x10^3/uL (2.2-4.8); NEUTROPHILS % (AUTO) 79.4 % (42.0-75.0); PLATELET COUNT 270 X10^3/uL (150.0-450.0); RED BLOOD COUNT 3.47 X10^6/uL (4.7-6.0); RED CELL DISTRIBUTION WIDTH 19.1 % (11.6-16.5); WHITE BLOOD COUNT 12.9 X10^3/uL (3.6-10.0)
[2020-03-09] MEDS ORDERED: LEXAPRO ONE ×2 (08:16→12:39)
[2020-03-09] MEDS: DIFLUCAN PO SCH ×2 (09:13→13:15)
[2020-03-09] MEDS: COREG TAB 6.25 MG PO SCH ×3 (09:13→21:33)
[2020-03-09] MEDS: MAG-OX TAB PO SCH (09:14)
[2020-03-09] MEDS: ROBITUSSIN DM PO SCH ×4 (09:14→21:33)
[2020-03-09] MEDS: LEXAPRO PO SCH ×2 (09:14→13:15)
[2020-03-09] MEDS: MONOKET or IMDUR PO SCH ×2 (09:14→21:33)
[2020-03-09] MEDS: PLAVIX PO SCH ×2 (09:14→13:15)
[2020-03-09] MEDS: VSL#3 PO SCH (09:15)
[2020-03-09] MEDS: SYNTHROID 50 mcg TAB PO SCH ×2 (09:15→13:15)
[2020-03-09] MEDS: LOVENOX INJ 40 MG SYR SC SCH (09:17)
[2020-03-09] MEDS ORDERED: MORPHINE SULFATE INJ 2 MG INJ IVP PRN (10:49)
--- NOTE | 2020-03-09 11:25 | RAD ---
HISTORYCHFSTUDYCHEST x-ray, 1 VIEWCOMPARISONX-ray 03/08/2020FINDINGSCentral venous catheter terminates in the region of the distal SVC. There is probable cardiomegaly. Diffuse lung infiltrates are similar to prior study. These may be due to pneumonia and/or pulmonary edema. Underlying chronic interstitial lung disease changes are not excluded. No pneumothorax or pleural effusion is seen.IMPRESSIONAppearance of the chest is similar to prior study.Electronically signed by: Dusty Gonzalez (Mar 09, 2020 11:23:24)
[2020-03-09] MEDS ORDERED: LASIX IVP ONE (12:26)
--- NOTE | 2020-03-09 15:13 | PCM.PROG ---
Progress Note Progress Note for Day of Date of Exam: 03/09/20 Subjective Subjective: Patient is a 75y/o male with a PMH CAD, HTN, CVA (right sided hemiparesis) admitted for pneumonia(COVID-19 negative). Pt has continued to rapidly decline over the past few days. He is now on BiPAP support with FiO2 at 100%. He also required ionotropic agents, levophed to maintain a MAP >65. His hospital course is complicated with significant congestive heart failure and pneumonia. Antibiotics he is currently on is Clindamycin and Diflucan. Azithromycin was discontinued due to risk of QT prolongation now that patient has been having brief periods of ventricular tachycardia. Labs/imaging: Wbc 12.9, Hgb 8, Plt 270, Na 141, K 4.4, Cr 1.16, Glucose 105. Blood cultures negative. Echo was ordered, EF=30%. CXR: There is probable cardiomegaly. Diffuse lung infiltrates are similar to prior study. These may be due to pneumonia and/or pulmonary edema. Will get D-dimer. Pt is in critical condition. Levophed gtt at 14mcg/min, titrate per protocol. Will add morphine and ativan to help manage pain and anxiety. Discussed with patient's difficult prognosis and available options, she agrees to DNR status, code status changed. Decrease IVF to KVO and will give IV lasix 40mg x 1 dose for fluid overload in the setting of heart failure. Will continue to closely monitor and follow up labs/imaging. Critical care time spent 30-74 minutes in clinical assessment, reviewing labs/imaging, decision making, and documentation. Past Medical Family Social History Past Med/Fam/Surg Hx: No changes since H&P Allergies: Allergies No Known Drug Allergies Allergy (Verified 03/03/20 13:33) Review of Systems ROS: No change since H&P Vital Signs and I&O's Vital Signs: Temperature 97.5 F Pulse Rate [Right Radial] 83 Pulse Rate 51 Respiratory Rate 22 Blood Pressure [Right Arm] 99/65 Blood Pressure 94/69 O2 Sat by Pulse Oximetry 100 Intake and Output: Intake & Output 03/06/20 03/07/20 03/08/20 03/09/20 23:59 23:59 23:59 23:59 Intake Total 1280 / 1280 1290 / 1290 1200 / 1200 1050 / 1050 Output Total 225 / 225 310 / 310 900 / 900 225 / 225 Balance 1055 / 1055 980 / 980 300 / 300 825 / 825 Physical Exam Oriented: Normal Eyes: Normal Ear: Normal Nose: Normal Throat: Normal Respiratory: Diminished Cardiovascular: Normal Auscultation: Bowel Sounds: Normal Tenderness: Normal Skin: Decreased Turgur Musculoskeletal: Right, Arm, Forearm, Leg, Motor Deficit and Instability Psychiatric: Other Mood Description: Calm Affect: Normal Speech Pattern: Appropriate Laboratory and Diagnostics Result Diagrams: 03/09/20 06:00 03/09/20 06:00 Labs: 03/03/20 15:42 Blood Blood Culture - Final 03/03/20 14:15 Blood Blood Culture - Final Laboratory WBC 12.9 X10^3/uL (3.6-10.0) H 03/09/20 06:00 RBC 3.47 X10^6/uL (4.7-6.0) L 03/09/20 06:00 Hgb 8.0 g/dL (13.5-18.0) L 03/09/20 06:00 Hct 26.8 % (42.0-54.0) L 03/09/20 06:00 MCV 77.1 fL (80.0-100.0) L 03/09/20 06:00 MCH 23.1 pg (27.0-34.0) L 03/09/20 06:00 MCHC 29.9 g/dL (33.0-35.0) L 03/09/20 06:00 RDW 19.1 % (11.6-16.5) H 03/09/20 06:00 Plt Count 270 X10^3/uL (150.0-450.0) 03/09/20 06:00 Plt Count Comment Adequate (ADEQUATE) 03/03/20 14:15 MPV 7.9 fL (7.4-11.0) 03/09/20 06:00 Neut % (Auto) 79.4 % (42.0-75.0) H 03/09/20 06:00 Lymph % (Auto) 7.4 % (21.0-51.0) L 03/09/20 06:00 [place] % (Auto) 11.1 % (0.0-13.0) 03/09/20 06:00 Eos % (Auto) 1.8 % (0.9-2.9) 03/09/20 06:00 Baso % (Auto) 0.3 % (0.2-1.0) 03/09/20 06:00 Neut # (Auto) 10.2 x10^3/uL (2.2-4.8) H 03/09/20 06:00 Lymph # (Auto) 1.0 X10^3/uL (1.3-2.9) L 03/09/20 06:00 [place] # (Auto) 1.4 x10^3/uL (0.3-0.8) H 03/09/20 06:00 Eos # (Auto) 0.2 x10^3/uL (0.0-0.2) 03/09/20 06:00 Baso # (Auto) 0.0 X10^3/uL (0.0-0.1) 03/09/20 06:00 Absolute Nucleated RBC 0.3 /100WBC 03/09/20 06:00 Plt Morphology Comment Normal (NORMAL) 03/03/20 14:15 RBC Morphology Abnormal (NORMAL) 03/03/20 14:15 Hypochromasia 1+ A 03/03/20 14:15 Anisocytosis Slight A 03/03/20 14:15 Microcytosis Slight A 03/03/20 14:15 Target Cells Present 03/03/20 14:15 PT 17.1 SECONDS (11.8-14.3) 03/04/20 05:18 INR Target Range - 03/04/20 05:18 INR 1.44 (0.8-1.3) H 03/04/20 05:18 APTT 38.5 SECONDS (22.9-36.5) H 03/04/20 05:18 PTT Comment - 03/04/20 05:18 Sample Site [place] 03/04/20 06:10 ABG pH 7.450 (7.35-7.45) 03/04/20 06:10 ABG pCO2 34.0 mmHg (35.0-45.0) L 03/04/20 06:10 ABG pO2 55.0 mmHg (80.0-100.0) L 03/04/20 06:10 ABG HCO3 23.6 mmol/L (22-26) 03/04/20 06:10 ABG O2 Saturation 90.0 % (90-100) 03/04/20 06:10 ABG Base Excess 0.1 mmol/L (-2.0-2.0) 03/04/20 06:10 Jhonatan Test Pos 03/04/20 06:10 A-a Gradient 131.0 mmHg 03/04/20 06:10 FiO2 32.0 03/04/20 06:10 Blood Gas Comments Kelsi abg well-mtf 03/04/20 06:10 Sodium 141 mmol/L (136-145) 03/09/20 06:00 Corrected Sodium TNP 03/09/20 06:00 Potassium 4.4 mmol/L (3.5-5.1) 03/09/20 06:00 Chloride 108 mmol/L (98-107) H 03/09/20 06:00 Carbon Dioxide 21.5 mmol/L (21-32) 03/09/20 06:00 BUN 30 mg/dL (7-18) H 03/09/20 06:00 Creatinine 1.16 mg/dL (0.70-1.30) 03/09/20 06:00 Est GFR (MDRD) Af Amer > 60 (>60) 03/09/20 06:00 Est GFR (MDRD) Non-Af > 60 (>60) 03/09/20 06:00 Glucose 105 mg/dL (65-99) H 03/09/20 06:00 Lactic Acid 2.4 mmol/L (0.4-2.0) H 03/03/20 14:15 Calcium 8.4 mg/dL (8.5-10.1) L 03/09/20 06:00 Corrected Calcium 9.8 mg/dL (8.5-10.1) 03/09/20 06:00 Magnesium 1.9 mg/dL (1.7-2.9) 03/09/20 06:00 Ferritin 64 ng/mL (26-388) 03/04/20 01:43 Total Bilirubin 1.20 mg/dL (0.2-1.0) H 03/09/20 06:00 AST 325 Units/L (15-37) H 03/09/20 06:00 ALT 329 Units/L (12-78) H 03/09/20 06:00 Alkaline Phosphatase 285 Units/L (46-116) H 03/09/20 06:00 Creatine Kinase 106 Units/L (39-308) 03/04/20 15:00 CK-MB (CK-2) 4.2 ng/mL (0-4.0) H* 03/04/20 15:00 CK/CKMB % Calc 4.0 % (<4) 03/04/20 15:00 Troponin I 0.20 ng/mL (0-1.5) 03/04/20 15:00 C-Reactive Protein 76.30 mg/L (0-3.0) H 03/04/20 01:43 Total Protein 6.7 g/dL (6.4-8.2) 03/09/20 06:00 Albumin 2.3 g/dL (3.4-5.0) L 03/09/20 06:00 Globulin 4.4 g/dL (2.5-4.5) 03/09/20 06:00 Albumin/Globulin Ratio 0.5 Ratio (1.1-2.1) L 03/09/20 06:00 Triglycerides 71 mg/dL (0-150) 03/04/20 05:18 Cholesterol 79 mg/dL (0-200) 03/04/20 05:18 LDL Cholesterol, Calc 39 mg/dL (0-100) 03/04/20 05:18 HDL Cholesterol 26 mg/dL (40-60) L 03/04/20 05:18 Cholesterol/HDL Ratio 3.0 (0.0-5.0) 03/04/20 05:18 Specimen Type Catherized urine 03/07/20 04:45 Urine Color Veronica (YELLOW) 03/07/20 04:45 Urine Appearance Clear (CLEAR) 03/07/20 04:45 Urine pH 5.0 (5.0 - 8.0) 03/07/20 04:45 Ur Specific [place] 1.020 (1.000-1.030) 03/07/20 04:45 Urine Protein 2+ (NEGATIVE) 03/07/20 04:45 Urine Glucose (UA) Negative (NEGATIVE) 03/07/20 04:45 Urine Ketones Negative (NEGATIVE) 03/07/20 04:45 Urine Occult Blood Negative (NEGATIVE) 03/07/20 04:45 Urine Nitrite Negative (NEGATIVE) 03/07/20 04:45 Urine Bilirubin 1+ (NEGATIVE) 03/07/20 04:45 Urine Urobilinogen 1+ (NORMAL) 03/07/20 04:45 Ur Leukocyte Esterase 1+ (NEGATIVE) 03/07/20 04:45 Urine RBC None seen /HPF (0-3) 03/07/20 04:45 Urine WBC 0-2 /HPF (0-5) 03/07/20 04:45 Ur Squamous Epith Cells Rare /HPF (NEGATIVE) 03/07/20 04:45 Urine Bacteria Negative /HPF (NEGATIVE) 03/07/20 04:45 Hyaline Casts Moderate /LPF (NEGATIVE) 03/07/20 04:45 Urine Mucus Few /HPF (NEGATIVE) 03/07/20 04:45 Ur Culture Indicated? No/not indicated 03/07/20 04:45 SARS CoV-2 RNA Rapid EARL Negative (NEGATIVE) 03/03/20 14:35 Miscellaneous Test Covid 19 03/04/20 03:36 Plan (1) Pneumonia: Status: Acute (2) Acute respiratory failure with hypoxia: Status: Acute (3) Right hemiparesis: Status: Acute (4) CVA (cerebral vascular accident): Status: Acute (5) Generalized weakness: Status: Acute (6) CAD (coronary artery disease): Status: Acute
--- NOTE | 2020-03-09 20:42 | CT ---
HISTORYElevated D-dimerSTUDYCTA chest with contrast for pulmonary embolusTechnique: Axial post-contrast images with coronal and sagittal reformats. Three dimensional maximum intensity projection images were obtained and evaluated. Dose reduction procedures were used with mA/kv adjusted for body size.COMPARISONNoneFINDINGSThere is no evidence for acute pulmonary thromboembolic disease in the main pulmonary artery, right and left main pulmonary arteries. Evaluation more peripherally is not possible due to suboptimal bolus timing. Examination of the mediastinum demonstrated no evidence for mediastinal masses, enlarged mediastinal or enlarged hilar adenopathy or significant aortic abnormality other than calcific atherosclerotic change. Bilateral pleural effusions are present. The heart is enlarged. No chest wall or axillary abnormality is identified. Those portions of the upper abdominal organs visualized appeared within long the limits to the limitations of significantly decreased amount of contrast present with the exception of partial visualization of an infrarenal abdominal aortic aneurysm demonstrating a maximum AP diameter 4.23 cm and a maximum transverse diameter of 4 cm. CTA of the abdomen pelvis is recommended for complete evaluation of this aneurysm. Examination of the lung matos demonstrated severe changes of paraseptal and centrilobular emphysema and interstitial lung disease which is most prominent in the lower lobes right greater than left and where there is some honeycombing suggestive of pulmonary fibrosis. Changes of honeycombing and pulmonary fibrosis are also identified in the upper lobes. No definite nodules, masses, alveolar infiltrates, areas of consolidation identified. Diffuse peribronchial thickening is present consistent with bronchitis which could be acute, chronic, or both. There are some foci of traction bronchiectasis in the upper lobes.IMPRESSIONNo evidence for acute pulmonary thromboembolic disease in the main pulmonary artery and the right and left main pulmonary arteries. More peripherally the examination is nondiagnostic due to suboptimal bolus timing.Severe changes of paraseptal and some changes of centrilobular emphysema diffusely and bilateralDiffuse bilateral chronic appearing interstitial lung disease likely pulmonary fibrosis with some areas of traction bronchiectasisPartial visualization of an infrarenal abdominal aortic aneurysm having a maximum AP diameter 4.2 cm and maximum transverse diameter of 4 cm in the portion of the proximal aneurysm visualized. Follow-up CTA of the abdomen pelvis is recommended for further evaluation of the abdominal aortaBilateral pleural effusionsElectronically signed by: AARON OLIVAS (Mar 09, 2020 20:41:10)
[2020-03-09] MEDS ORDERED: LIPITOR TAB 80 MG PO SCH (21:00)
[2020-03-09] MEDS: ATIVAN INJ 2 MG VIAL IVP SCH (21:34)
[2020-03-10] MEDS: NS 1000 ML 1,000 ML IV SCH ×3 (02:37→14:02)
[2020-03-10 05:29] LABS: ABG BASE EXCESS -3.6 mmol/L (-2.0-2.0); ABG HCO3 21.5 mmol/L (22-26)
[2020-03-10 05:30] LABS: ABG ALLEN TEST POS
[2020-03-10] MEDS: DUONEB 0.5 MG/3 MG (3 mL) NEB SCH ×2 (06:03→13:15)
[2020-03-10 06:22] LABS: BASOPHILS # (AUTO) 0.1 X10^3/uL (0.0-0.1); BASOPHILS % (AUTO) 0.3 % (0.2-1.0); EOSINOPHILS # (AUTO) 0.2 x10^3/uL (0.0-0.2); EOSINOPHILS % (AUTO) 1.5 % (0.9-2.9); HEMATOCRIT 29.5 % (42.0-54.0); HEMOGLOBIN 8.7 g/dL (13.5-18.0); LYMPHOCYTES # (AUTO) 1.7 X10^3/uL (1.3-2.9); LYMPHOCYTES % (AUTO) 10.7 % (21.0-51.0); MEAN CORPUSCULAR HEMOGLOBIN 22.9 pg (27.0-34.0); MEAN CORPUSCULAR HGB CONC 29.4 g/dL (33.0-35.0); MEAN CORPUSCULAR VOLUME 77.8 fL (80.0-100.0); MEAN PLATELET VOLUME 7.8 fL (7.4-11.0); MONOCYTES % (AUTO) 12.5 % (0.0-13.0); NEUTROPHILS # (AUTO) 12.2 x10^3/uL (2.2-4.8); PLATELET COUNT 262 X10^3/uL (150.0-450.0); RED BLOOD COUNT 3.79 X10^6/uL (4.7-6.0); RED CELL DISTRIBUTION WIDTH 19.3 % (11.6-16.5); WHITE BLOOD COUNT 16.3 X10^3/uL (3.6-10.0)
[2020-03-10] MEDS: CLEOCIN 600 MG IV PREMIX 600 MG/50 ML BAG IV SCH ×2 (06:23→13:25)
[2020-03-10] MEDS: LEVOPHED INJ 8 MG in D5W 250 ML IV 242 ML IV PRN ×2 (06:23→06:24)
[2020-03-10] MEDS: ATIVAN INJ 2 MG VIAL IVP SCH ×2 (06:23→14:06)
[2020-03-10 06:51] LABS: ALANINE AMINOTRANSFERASE 328 Units/L (12-78); ALBUMIN 2.4 g/dL (3.4-5.0); ALKALINE PHOSPHATASE 336 Units/L (46-116); ASPARTATE AMINO TRANSFERASE 286 Units/L (15-37); BLOOD UREA NITROGEN 26 mg/dL (7-18); CALCIUM 8.9 mg/dL (8.5-10.1); CARBON DIOXIDE 20.7 mmol/L (21-32); CHLORIDE 109 mmol/L (98-107); COR CA(FOR HYPOALB) 10.2 mg/dL (8.5-10.1); CREATININE 1.05 mg/dL (0.70-1.30); SODIUM 142 mmol/L (136-145); TOTAL PROTEIN 7.2 g/dL (6.4-8.2); eGFR NON BLACK RACES > 60 (>60)
--- NOTE | 2020-03-10 07:38 | RAD ---
HISTORYPNEUMONIASTUDYCHEST, 1 VIEWCOMPARISONOne day prior.TECHNIQUEAP view of the chestFINDINGSRight IJ central line in good position. Stable cardiomegaly. Mediastinal contours appear stable.No significant change in bilateral airspace and interstitial opacities. Right costophrenic sulci is excluded. Small pleural effusions. No definite pneumothorax. Background of emphysema.IMPRESSIONNo significant change.Electronically signed by: Omar Taylor (Mar 10, 2020 07:36:41)
[2020-03-10] MEDS ORDERED: LASIX IVP ONE (08:03)
[2020-03-10] MEDS ORDERED: LEXAPRO ONE (08:53)
[2020-03-10] MEDS: COREG TAB 6.25 MG PO SCH (09:33)
[2020-03-10] MEDS: DIFLUCAN PO SCH (09:34)
[2020-03-10] MEDS: LEXAPRO PO SCH (09:34)
[2020-03-10] MEDS: VSL#3 PO SCH (09:35)
[2020-03-10] MEDS: LOVENOX INJ 40 MG SYR SC SCH (09:35)
[2020-03-10] MEDS: MAG-OX TAB PO SCH (09:36)
[2020-03-10] MEDS: PLAVIX PO SCH (09:36)
[2020-03-10] MEDS: MONOKET or IMDUR PO SCH (09:36)
[2020-03-10] MEDS: ROBITUSSIN DM PO SCH ×2 (09:36→13:32)
[2020-03-10] MEDS: SYNTHROID 50 mcg TAB PO SCH (09:37)
[2020-03-10] MEDS ORDERED: ATIVAN INJ 2 MG VIAL IVP PRN (15:08)
[2020-03-10] MEDS ORDERED: MORPHINE SULFATE INJ 2 MG INJ IVP PRN (15:08)
--- NOTE | 2020-03-10 15:17 | PCM.PROG ---
Progress Note Progress Note for Day of Date of Exam: 03/10/20 Subjective Subjective: Patient is a 75 y/o male with a PMH CAD, HTN, CVA (right sided hemiparesis) admitted for pneumonia(COVID-19 negative) and HFrEF(EF=30%) exacerbation. This morning pt's condition continues to deteriorate, requiring more Levophed to keep his blood pressure and MAP within normal limits and stab ilized. He is still requiring BiPAP support with FiO2 at 100%. He is currently on antibiotics Clindamycin and Diflucan. Labs/imaging: Wbc 16.3, Hgb 8.7, Plt 262, Na 142, K 4.3, Cr 1.05, Glucose 94. Blood cultures negative. AB.36/38/137/21.5/99% on FiO2 100%. D-dimer: 2.54, CTA Chest: No evidence for acute pulmonary thromboembolic disease. Severe changes of paraseptal and some changes of centrilobular emphysema diffusely and bilateral Diffuse bilateral chronic appearing interstitial lung disease likely pulmonary fibrosis with some areas of traction bronchiectasis. Bilateral pleural effusions. CXR: no significant change. Pt is in critical condition. Levophed gtt at 20mcg/min, titrate per protocol. Discussed with patient's his prognosis and available options, desires DNR status to respect his wishes, no aggressive measures. IV lasix 40mg x 1 dose ordered. Continue to monitor closely and follow up labs/imaging in the morning. Critical care time spent 30-74 minutes in clinical assessment, reviewing labs/imaging, decision making, and documentation. Past Medical Family Social History Past Med/Fam/Surg Hx: No changes since H&P Allergies: Allergies No Known Drug Allergies Allergy (Verified 03/03/20 13:33) Review of Systems ROS: No change since H&P Vital Signs and I&O's Vital Signs: Temperature 98.6 F Pulse Rate [Right Radial] 74 Pulse Rate 81 Respiratory Rate 20 Blood Pressure [Right Arm] 89/60 Blood Pressure 94/69 O2 Sat by Pulse Oximetry 90 Intake and Output: Intake & Output 03/07/20 03/08/20 03/09/20 03/10/20 23:59 23:59 23:59 23:59 Intake Total 1290 / 1290 1200 / 1200 2550 / 2550 1550 / 1550 Output Total 310 / 310 900 / 900 1700 / 1700 475 / 475 Balance 980 / 980 300 / 300 850 / 850 1075 / 1075 Physical Exam Oriented: Normal Eyes: Normal Ear: Normal Nose: Normal Throat: Normal Respiratory: Diminished Cardiovascular: Normal Auscultation: Bowel Sounds: Normal Tenderness: Normal Skin: Decreased Turgur Musculoskeletal: Right, Arm, Forearm, Leg, Motor Deficit and Instability Psychiatric: Other Mood Description: Anxious Affect: Anxious Laboratory and Diagnostics Result Diagrams: 03/10/20 05:51 03/10/20 05:51 Labs: 03/03/20 15:42 Blood Blood Culture - Final 03/03/20 14:15 Blood Blood Culture - Final Laboratory WBC 16.3 X10^3/uL (3.6-10.0) H 03/10/20 05:51 RBC 3.79 X10^6/uL (4.7-6.0) L 03/10/20 05:51 Hgb 8.7 g/dL (13.5-18.0) L 03/10/20 05:51 Hct 29.5 % (42.0-54.0) L 03/10/20 05:51 MCV 77.8 fL (80.0-100.0) L 03/10/20 05:51 MCH 22.9 pg (27.0-34.0) L 03/10/20 05:51 MCHC 29.4 g/dL (33.0-35.0) L 03/10/20 05:51 RDW 19.3 % (11.6-16.5) H 03/10/20 05:51 Plt Count 262 X10^3/uL (150.0-450.0) 03/10/20 05:51 Plt Count Comment Adequate (ADEQUATE) 03/03/20 14:15 MPV 7.8 fL (7.4-11.0) 03/10/20 05:51 Neut % (Auto) 75.0 % (42.0-75.0) 03/10/20 05:51 Lymph % (Auto) 10.7 % (21.0-51.0) L 03/10/20 05:51 [place] % (Auto) 12.5 % (0.0-13.0) 03/10/20 05:51 Eos % (Auto) 1.5 % (0.9-2.9) 03/10/20 05:51 Baso % (Auto) 0.3 % (0.2-1.0) 03/10/20 05:51 Neut # (Auto) 12.2 x10^3/uL (2.2-4.8) H 03/10/20 05:51 Lymph # (Auto) 1.7 X10^3/uL (1.3-2.9) 03/10/20 05:51 [place] # (Auto) 2.0 x10^3/uL (0.3-0.8) H 03/10/20 05:51 Eos # (Auto) 0.2 x10^3/uL (0.0-0.2) 03/10/20 05:51 Baso # (Auto) 0.1 X10^3/uL (0.0-0.1) 03/10/20 05:51 Absolute Nucleated RBC 0.3 /100WBC 03/10/20 05:51 Plt Morphology Comment Normal (NORMAL) 03/03/20 14:15 RBC Morphology Abnormal (NORMAL) 03/03/20 14:15 Hypochromasia 1+ A 03/03/20 14:15 Anisocytosis Slight A 03/03/20 14:15 Microcytosis Slight A 03/03/20 14:15 Target Cells Present 03/03/20 14:15 PT 17.1 SECONDS (11.8-14.3) 03/04/20 05:18 INR Target Range - 03/04/20 05:18 INR 1.44 (0.8-1.3) H 03/04/20 05:18 APTT 38.5 SECONDS (22.9-36.5) H 03/04/20 05:18 PTT Comment - 03/04/20 05:18 D-Dimer 2.54 ug/ml (0.0-0.57) H* 03/09/20 16:20 Sample Site Lr 03/10/20 05:00 ABG pH 7.360 (7.35-7.45) 03/10/20 05:00 ABG pCO2 38.0 mmHg (35.0-45.0) 03/10/20 05:00 ABG pO2 137.0 mmHg (80.0-100.0) H 03/10/20 05:00 ABG HCO3 21.5 mmol/L (22-26) L 03/10/20 05:00 ABG O2 Saturation 99.0 % (90-100) 03/10/20 05:00 ABG Base Excess -3.6 mmol/L (-2.0-2.0) L 03/10/20 05:00 Jhonatan Test Pos 03/10/20 05:00 A-a Gradient 529.0 mmHg 03/10/20 05:00 FiO2 100.0 03/10/20 05:00 Blood Gas Comments Kelsi well sw 03/10/20 05:00 Sodium 142 mmol/L (136-145) 03/10/20 05:51 Corrected Sodium TNP 03/10/20 05:51 Potassium 4.3 mmol/L (3.5-5.1) 03/10/20 05:51 Chloride 109 mmol/L (98-107) H 03/10/20 05:51 Carbon Dioxide 20.7 mmol/L (21-32) L 03/10/20 05:51 BUN 26 mg/dL (7-18) H 03/10/20 05:51 Creatinine 1.05 mg/dL (0.70-1.30) 03/10/20 05:51 Est GFR (MDRD) Af Amer > 60 (>60) 03/10/20 05:51 Est GFR (MDRD) Non-Af > 60 (>60) 03/10/20 05:51 Glucose 94 mg/dL (65-99) 03/10/20 05:51 Lactic Acid 2.4 mmol/L (0.4-2.0) H 03/03/20 14:15 Calcium 8.9 mg/dL (8.5-10.1) 03/10/20 05:51 Corrected Calcium 10.2 mg/dL (8.5-10.1) H 03/10/20 05:51 Magnesium 1.9 mg/dL (1.7-2.9) 03/09/20 06:00 Ferritin 64 ng/mL (26-388) 03/04/20 01:43 Total Bilirubin 1.20 mg/dL (0.2-1.0) H 03/10/20 05:51 AST 286 Units/L (15-37) H 03/10/20 05:51 ALT 328 Units/L (12-78) H 03/10/20 05:51 Alkaline Phosphatase 336 Units/L (46-116) H 03/10/20 05:51 Creatine Kinase 106 Units/L (39-308) 03/04/20 15:00 CK-MB (CK-2) 4.2 ng/mL (0-4.0) H* 03/04/20 15:00 CK/CKMB % Calc 4.0 % (<4) 03/04/20 15:00 Troponin I 0.20 ng/mL (0-1.5) 03/04/20 15:00 C-Reactive Protein 76.30 mg/L (0-3.0) H 03/04/20 01:43 Total Protein 7.2 g/dL (6.4-8.2) 03/10/20 05:51 Albumin 2.4 g/dL (3.4-5.0) L 03/10/20 05:51 Globulin 4.8 g/dL (2.5-4.5) H 03/10/20 05:51 Albumin/Globulin Ratio 0.5 Ratio (1.1-2.1) L 03/10/20 05:51 Triglycerides 71 mg/dL (0-150) 03/04/20 05:18 Cholesterol 79 mg/dL (0-200) 03/04/20 05:18 LDL Cholesterol, Calc 39 mg/dL (0-100) 03/04/20 05:18 HDL Cholesterol 26 mg/dL (40-60) L 03/04/20 05:18 Cholesterol/HDL Ratio 3.0 (0.0-5.0) 03/04/20 05:18 Specimen Type Catherized urine 03/07/20 04:45 Urine Color [place]onica (YELLOW) 03/07/20 04:45 Urine Appearance Clear (CLEAR) 03/07/20 04:45 Urine pH 5.0 (5.0 - 8.0) 03/07/20 04:45 Ur Specific [place] 1.020 (1.000-1.030) 03/07/20 04:45 Urine Protein 2+ (NEGATIVE) 03/07/20 04:45 Urine Glucose (UA) Negative (NEGATIVE) 03/07/20 04:45 Urine Ketones Negative (NEGATIVE) 03/07/20 04:45 Urine Occult Blood Negative (NEGATIVE) 03/07/20 04:45 Urine Nitrite Negative (NEGATIVE) 03/07/20 04:45 Urine Bilirubin 1+ (NEGATIVE) 03/07/20 04:45 Urine Urobilinogen 1+ (NORMAL) 03/07/20 04:45 Ur Leukocyte Esterase 1+ (NEGATIVE) 03/07/20 04:45 Urine RBC None seen /HPF (0-3) 03/07/20 04:45 Urine WBC 0-2 /HPF (0-5) 03/07/20 04:45 Ur Squamous Epith Cells Rare /HPF (NEGATIVE) 03/07/20 04:45 Urine Bacteria Negative /HPF (NEGATIVE) 03/07/20 04:45 Hyaline Casts Moderate /LPF (NEGATIVE) 03/07/20 04:45 Urine Mucus Few /HPF (NEGATIVE) 03/07/20 04:45 Ur Culture Indicated? No/not indicated 03/07/20 04:45 SARS CoV-2 RNA Rapid EARL Negative (NEGATIVE) 03/03/20 14:35 Miscellaneous Test Covid 19 03/04/20 03:36 Plan (1) Pneumonia: Status: Acute (2) Acute respiratory failure with hypoxia: Status: Acute (3) Right hemiparesis: Status: Acute (4) CVA (cerebral vascular accident): Status: Acute (5) Generalized weakness: Status: Acute (6) CAD (coronary artery disease): Status: Acute
[2020-03-10 15:21] VITALS: BP 77/55
--- NOTE | 2020-03-11 14:20 | W.DIS.FURT ---
Summary of Discharge Discharge Summary of Date Date of Exam: 03/10/20 Admission Date Date of Admission: 03/03/20 Admission Diagnosis Hospital Course: Patient is a 75 y/o male with a PMH CAD, HTN, CVA (right sided hemiparesis) admitted for pneumonia(COVID-19 negative) and HFrEF(EF=30%) exacerbation. During hospital course (see progress note) patient's condition continued to rapidly decline. He required Levophed for his blood pressures and BiPAP support with FiO2 at 100%. Pt with acute respiratory failure and multisystem organ failure. It was discussed with pt's critical condition, poor prognosis. Pt with DNR status to respect his wishes, no aggressive measures. Pt was made comfortable with medications. Pt on 03/10/2020. Vital Signs: Vital Signs (72 hours) 03/08/20 14:23 03/08/20 14:32 03/08/20 15:32 Temperature 97 F L Pulse Rate Pulse Rate [Right Radial] 80 82 77 Respiratory Rate 20 20 24 Blood Pressure [Right Arm] 90/65 91/67 86/70 O2 Sat by Pulse Oximetry 100 100 100 03/08/20 16:32 03/08/20 17:00 03/08/20 18:00 Temperature Pulse Rate Pulse Rate [Right Radial] 78 79 84 Respiratory Rate 22 21 26 H Blood Pressure [Right Arm] 92/59 87/65 78/62 O2 Sat by Pulse Oximetry 100 100 98 03/08/20 18:31 03/08/20 19:00 03/08/20 20:00 Temperature 97.6 F Pulse Rate Pulse Rate [Right Radial] 84 80 83 Respiratory Rate 26 H 19 18 Blood Pressure [Right Arm] 98/62 105/65 97/60 O2 Sat by Pulse Oximetry 98 100 100 03/08/20 21:00 03/08/20 21:10 03/08/20 22:00 Temperature Pulse Rate 51 L Pulse Rate [Right Radial] 88 85 Respiratory Rate 18 24 Blood Pressure [Right Arm] 85/55 94/63 O2 Sat by Pulse Oximetry 100 100 100 03/09/20 00:00 03/09/20 01:00 03/09/20 02:00 Temperature 97.6 F Pulse Rate Pulse Rate [Right Radial] 84 84 82 Respiratory Rate 30 H 21 18 Blood Pressure [Right Arm] 89/67 100/73 98/69 O2 Sat by Pulse Oximetry 100 99 100 03/09/20 03:00 03/09/20 04:00 03/09/20 05:00 Temperature 97.4 F L Pulse Rate Pulse Rate [Right Radial] 84 81 82 Respiratory Rate 18 20 17 Blood Pressure [Right Arm] 112/71 102/70 98/69 O2 Sat by Pulse Oximetry 100 99 99 03/09/20 06:00 03/09/20 07:00 03/09/20 07:56 Temperature 97.5 F L Pulse Rate Pulse Rate [Right Radial] 84 83 84 Respiratory Rate 20 22 22 Blood Pressure [Right Arm] 104/69 101/70 100/70 O2 Sat by Pulse Oximetry 100 100 100 03/09/20 09:00 03/09/20 09:56 03/09/20 11:00 Temperature Pulse Rate Pulse Rate [Right Radial] 86 85 87 Respiratory Rate 24 21 22 Blood Pressure [Right Arm] 98/70 103/68 101/71 O2 Sat by Pulse Oximetry 100 100 100 03/09/20 12:00 03/09/20 13:00 03/09/20 14:00 Temperature Pulse Rate Pulse Rate [Right Radial] 86 92 H 83 Respiratory Rate 24 24 22 Blood Pressure [Right Arm] 107/72 114/70 99/65 O2 Sat by Pulse Oximetry 100 100 100 03/09/20 15:00 03/09/20 16:00 03/09/20 17:00 Temperature 97.9 F Pulse Rate Pulse Rate [Right Radial] 85 85 89 Respiratory Rate 30 H 23 25 H Blood Pressure [Right Arm] 100/70 91/58 110/80 O2 Sat by Pulse Oximetry 100 100 100 03/09/20 18:00 03/09/20 19:00 03/09/20 20:00 Temperature 97.3 F L Pulse Rate Pulse Rate [Right Radial] 91 H 84 86 Respiratory Rate 28 H 27 H 28 H Blood Pressure [Right Arm] 112/78 81/56 82/57 O2 Sat by Pulse Oximetry 100 100 100 03/09/20 21:00 03/09/20 22:00 03/09/20 23:00 Temperature 97.5 F L Pulse Rate 97 H Pulse Rate [Right Radial] 84 87 86 Respiratory Rate 26 H 23 21 Blood Pressure [Right Arm] 82/52 92/54 109/69 O2 Sat by Pulse Oximetry 100 100 100 03/10/20 00:00 03/10/20 01:00 03/10/20 02:00 Temperature Pulse Rate Pulse Rate [Right Radial] 88 90 90 Respiratory Rate 19 19 22 Blood Pressure [Right Arm] 96/62 104/66 101/68 O2 Sat by Pulse Oximetry 100 100 100 03/10/20 03:00 03/10/20 04:00 03/10/20 05:00 Temperature 97.7 F Pulse Rate Pulse Rate [Right Radial] 84 90 91 H Respiratory Rate 20 20 22 Blood Pressure [Right Arm] 98/74 100/56 115/64 O2 Sat by Pulse Oximetry 100 100 100 03/10/20 06:00 03/10/20 06:03 03/10/20 07:00 Temperature Pulse Rate 65 Pulse Rate [Right Radial] 91 H 91 H Respiratory Rate 25 H 27 H Blood Pressure [Right Arm] 100/63 109/67 O2 Sat by Pulse Oximetry 100 99 100 03/10/20 08:00 03/10/20 09:00 03/10/20 10:00 Temperature Pulse Rate Pulse Rate [Right Radial] 93 H 91 H 92 H Respiratory Rate 19 19 20 Blood Pressure [Right Arm] 102/74 111/73 115/77 O2 Sat by Pulse Oximetry 97 97 100 03/10/20 11:00 03/10/20 12:00 03/10/20 13:00 Temperature 98.6 F Pulse Rate Pulse Rate [Right Radial] 70 82 82 Respiratory Rate 17 21 Blood Pressure [Right Arm] 99/63 89/71 90/75 O2 Sat by Pulse Oximetry 98 99 99 03/10/20 13:15 03/10/20 14:00 03/10/20 15:00 Temperature Pulse Rate 81 Pulse Rate [Right Radial] 74 75 Respiratory Rate 20 22 Blood Pressure [Right Arm] 89/60 77/55 O2 Sat by Pulse Oximetry 100 90 L 83 L 03/10/20 15:32 Temperature Pulse Rate Pulse Rate [Right Radial] Respiratory Rate 23 Blood Pressure [Right Arm] O2 Sat by Pulse Oximetry Labs: Laboratory Last Values WBC 16.3 X10^3/uL (3.6-10.0) H 03/10/20 05:51 RBC 3.79 X10^6/uL (4.7-6.0) L 03/10/20 05:51 Hgb 8.7 g/dL (13.5-18.0) L 03/10/20 05:51 Hct 29.5 % (42.0-54.0) L 03/10/20 05:51 MCV 77.8 fL (80.0-100.0) L 03/10/20 05:51 MCH 22.9 pg (27.0-34.0) L 03/10/20 05:51 MCHC 29.4 g/dL (33.0-35.0) L 03/10/20 05:51 RDW 19.3 % (11.6-16.5) H 03/10/20 05:51 Plt Count 262 X10^3/uL (150.0-450.0) 03/10/20 05:51 Plt Count Comment Adequate (ADEQUATE) 03/03/20 14:15 MPV 7.8 fL (7.4-11.0) 03/10/20 05:51 Neut % (Auto) 75.0 % (42.0-75.0) 03/10/20 05:51 Lymph % (Auto) 10.7 % (21.0-51.0) L 03/10/20 05:51 Rice % (Auto) 12.5 % (0.0-13.0) 03/10/20 05:51 Eos % (Auto) 1.5 % (0.9-2.9) 03/10/20 05:51 Baso % (Auto) 0.3 % (0.2-1.0) 03/10/20 05:51 Neut # (Auto) 12.2 x10^3/uL (2.2-4.8) H 03/10/20 05:51 Lymph # (Auto) 1.7 X10^3/uL (1.3-2.9) 03/10/20 05:51 Rice # (Auto) 2.0 x10^3/uL (0.3-0.8) H 03/10/20 05:51 Eos # (Auto) 0.2 x10^3/uL (0.0-0.2) 03/10/20 05:51 Baso # (Auto) 0.1 X10^3/uL (0.0-0.1) 03/10/20 05:51 Absolute Nucleated RBC 0.3 /100WBC 03/10/20 05:51 Plt Morphology Comment Normal (NORMAL) 03/03/20 14:15 RBC Morphology Abnormal (NORMAL) 03/03/20 14:15 Hypochromasia 1+ A 03/03/20 14:15 Anisocytosis Slight A 03/03/20 14:15 Microcytosis Slight A 03/03/20 14:15 Target Cells Present 03/03/20 14:15 PT 17.1 SECONDS (11.8-14.3) 03/04/20 05:18 INR Target Range - 03/04/20 05:18 INR 1.44 (0.8-1.3) H 03/04/20 05:18 APTT 38.5 SECONDS (22.9-36.5) H 03/04/20 05:18 PTT Comment - 03/04/20 05:18 D-Dimer 2.54 ug/ml (0.0-0.57) H* 03/09/20 16:20 Sample Site Lr 03/10/20 05:00 ABG pH 7.360 (7.35-7.45) 03/10/20 05:00 ABG pCO2 38.0 mmHg (35.0-45.0) 03/10/20 05:00 ABG pO2 137.0 mmHg (80.0-100.0) H 03/10/20 05:00 ABG HCO3 21.5 mmol/L (22-26) L 03/10/20 05:00 ABG O2 Saturation 99.0 % (90-100) 03/10/20 05:00 ABG Base Excess -3.6 mmol/L (-2.0-2.0) L 03/10/20 05:00 Jhonatan Test Pos 03/10/20 05:00 A-a Gradient 529.0 mmHg 03/10/20 05:00 FiO2 100.0 03/10/20 05:00 Blood Gas Comments Kelsi well sw 03/10/20 05:00 Sodium 142 mmol/L (136-145) 03/10/20 05:51 Corrected Sodium TNP 03/10/20 05:51 Potassium 4.3 mmol/L (3.5-5.1) 03/10/20 05:51 Chloride 109 mmol/L (98-107) H 03/10/20 05:51 Carbon Dioxide 20.7 mmol/L (21-32) L 03/10/20 05:51 BUN 26 mg/dL (7-18) H 03/10/20 05:51 Creatinine 1.05 mg/dL (0.70-1.30) 03/10/20 05:51 Est GFR (MDRD) Af Amer > 60 (>60) 03/10/20 05:51 Est GFR (MDRD) Non-Af > 60 (>60) 03/10/20 05:51 Glucose 94 mg/dL (65-99) 03/10/20 05:51 Lactic Acid 2.4 mmol/L (0.4-2.0) H 03/03/20 14:15 Calcium 8.9 mg/dL (8.5-10.1) 03/10/20 05:51 Corrected Calcium 10.2 mg/dL (8.5-10.1) H 03/10/20 05:51 Magnesium 1.9 mg/dL (1.7-2.9) 03/09/20 06:00 Ferritin 64 ng/mL (26-388) 03/04/20 01:43 Total Bilirubin 1.20 mg/dL (0.2-1.0) H 03/10/20 05:51 AST 286 Units/L (15-37) H 03/10/20 05:51 ALT 328 Units/L (12-78) H 03/10/20 05:51 Alkaline Phosphatase 336 Units/L (46-116) H 03/10/20 05:51 Creatine Kinase 106 Units/L (39-308) 03/04/20 15:00 CK-MB (CK-2) 4.2 ng/mL (0-4.0) H* 03/04/20 15:00 CK/CKMB % Calc 4.0 % (<4) 03/04/20 15:00 Troponin I 0.20 ng/mL (0-1.5) 03/04/20 15:00 C-Reactive Protein 76.30 mg/L (0-3.0) H 03/04/20 01:43 Total Protein 7.2 g/dL (6.4-8.2) 03/10/20 05:51 Albumin 2.4 g/dL (3.4-5.0) L 03/10/20 05:51 Globulin 4.8 g/dL (2.5-4.5) H 03/10/20 05:51 Albumin/Globulin Ratio 0.5 Ratio (1.1-2.1) L 03/10/20 05:51 Triglycerides 71 mg/dL (0-150) 03/04/20 05:18 Cholesterol 79 mg/dL (0-200) 03/04/20 05:18 LDL Cholesterol, Calc 39 mg/dL (0-100) 03/04/20 05:18 HDL Cholesterol 26 mg/dL (40-60) L 03/04/20 05:18 Cholesterol/HDL Ratio 3.0 (0.0-5.0) 03/04/20 05:18 Specimen Type Catherized urine 03/07/20 04:45 Urine Color Veronica (YELLOW) 03/07/20 04:45 Urine Appearance Clear (CLEAR) 03/07/20 04:45 Urine pH 5.0 (5.0 - 8.0) 03/07/20 04:45 Ur Specific [place] 1.020 (1.000-1.030) 03/07/20 04:45 Urine Protein 2+ (NEGATIVE) 03/07/20 04:45 Urine Glucose (UA) Negative (NEGATIVE) 03/07/20 04:45 Urine Ketones Negative (NEGATIVE) 03/07/20 04:45 Urine Occult Blood Negative (NEGATIVE) 03/07/20 04:45 Urine Nitrite Negative (NEGATIVE) 03/07/20 04:45 Urine Bilirubin 1+ (NEGATIVE) 03/07/20 04:45 Urine Urobilinogen 1+ (NORMAL) 03/07/20 04:45 Ur Leukocyte Esterase 1+ (NEGATIVE) 03/07/20 04:45 Urine RBC None seen /HPF (0-3) 03/07/20 04:45 Urine WBC 0-2 /HPF (0-5) 03/07/20 04:45 Ur Squamous Epith Cells Rare /HPF (NEGATIVE) 03/07/20 04:45 Urine Bacteria Negative /HPF (NEGATIVE) 03/07/20 04:45 Hyaline Casts Moderate /LPF (NEGATIVE) 03/07/20 04:45 Urine Mucus Few /HPF (NEGATIVE) 03/07/20 04:45 Ur Culture Indicated? No/not indicated 03/07/20 04:45 SARS CoV-2 RNA Rapid EARL Negative (NEGATIVE) 03/03/20 14:35 Miscellaneous Test Covid 19 03/04/20 03:36 Reason For Visit: PNEUMONIA, HYPOTENSION, GENERALIZED WEAKNESS Discharge Date Discharge Date: 03/10/20 Discharge Diagnosis All Active Problems (Updated 03/06/20 @ 12:52 by Roxana Whitlock) CAD (coronary artery disease) (Acute) Generalized weakness (Acute) CVA (cerebral vascular accident) (Acute) Right hemiparesis (Acute) Acute respiratory failure with hypoxia (Acute) Pneumonia (Acute) Plan of Treatment: Continue with present treatment and follow up plan. Pt is to keep follow up appointment as instructed and take medications as ordered. Discharge Medications Discharge Medications: No Known Drug Allergies Allergy (Verified 03/03/20 13:33) CONTINUE taking the following medications atorvastatin 80 mg PO HS 03/04/20 [History] clopidogrel 75 mg PO DAILY 03/04/20 [History] furosemide 20 mg PO DAILY 03/04/20 [History] isosorbide mononitrate 20 mg PO BID 03/04/20 [History] levothyroxine 50 mcg PO DAILY 03/04/20 [History] magnesium oxide 400 mg PO DAILY 03/04/20 [History] metoprolol succinate 12.5 mg PO DAILY 03/04/20 [History] pravastatin 40 mg PO DAILY 03/04/20 [History] sertraline 50 mg PO DAILY 03/04/20 [History] Discharge Disposition Discharge Disposition: Discharge Condition: Discharge Plan Discharge Plan Hospital Course: Patient is a 75 y/o male with a PMH CAD, HTN, CVA (right sided hemiparesis) admitted for pneumonia(COVID-19 negative) and HFrEF(EF=30%) exacerbation. During hospital course (see progress note) patient's condition continued to rapidly decline. He required Levophed for his blood pressures and BiPAP support with FiO2 at 100%. Pt with acute respiratory failure and multisystem organ failure. It was discussed with pt's critical condition, poor prognosis. Pt with DNR status to respect his wishes, no aggressive measures. Pt was made comfortable with medications. Pt on 03/10/2020. Patient Disposition: 20 Condition: Stable Health Concerns: Post Hospitalization: new medications and changes needed to prevent readmission or further decline. Pt educated and given instructions on all concerns. Care Plan Goals: Problem: Infection Goal: Temperature within normal limits. Resolved infection. Instructions: Follow provided instructions. Follow up with primary physician as directed. Contact primary care physician or report to the closest Emergency Room if condition worsens. Plan of Treatment: Continue with present treatment and follow up plan. Pt is to keep follow up appointment as instructed and take medications as ordered. Prescriptions: No Action magnesium oxide 400 mg (241.3 mg magnesium) tablet 400 mg PO DAILY RF: 0 furosemide 20 mg tablet 20 mg PO DAILY RF: 0 atorvastatin 80 mg tablet 80 mg PO HS RF: 0 metoprolol succinate 25 mg tablet extended release 24 hr 12.5 mg PO DAILY RF: 0 isosorbide mononitrate 20 mg tablet 20 mg PO BID RF: 0 pravastatin 40 mg tablet 40 mg PO DAILY RF: 0 clopidogrel 75 mg tablet 75 mg PO DAILY RF: 0 sertraline 50 mg tablet 50 mg PO DAILY RF: 0 levothyroxine 50 mcg tablet 50 mcg PO DAILY RF: 0 Follow ups/Referrals Follow ups/Referrals: DIANA ROSE [Primary Care Provider] - 1 WEEK Instructions Instructions: Upper Respiratory Infection, Adult, [id number], Weakness, [id number], Acute Respiratory Failure, Adult, Community-Acquired Pneumonia, Adult, [id number]
== END 2020-03-10 19:00 | disposition expired | DRG 193 ==
LOC: OBS 13:31 → ER 13:31 → OBSVTOIN 03-04 00:28 → OBS 03-04 01:50 → MED/SURG 03-04 09:09
PROVIDERS: ADMIT Family Medicine; ATTEND Family Medicine